=== PATIENT | female | born 1970 | race Caucasian/White ===

== ENCOUNTER 2016-10-11 04:22 | Emergency (ER) | payer BC ==
[~2016-10-11] VITALS: Ht 172.7 cm; Wt 69.8 kg
[~2016-10-11 04:22] MED LIST: AZIT250T PO
[2016-10-11 04:25] VITALS: TEMP 36.5; Ht 172.7 cm; Wt 69.8 kg
[2016-10-11] MEDS ORDERED: ONDANSETRON INJ 2 MG/ML 2 ML VIAL IV STA (04:33)
[2016-10-11] MEDS ORDERED: MoRPHine SULFATE 4 MG/ML 1 ML CARP\\VIAL IV STA ×2 (04:33→06:16)
[2016-10-11] MEDS ORDERED: SODIUM CHLORIDE 0.9% 1000ML 1,000 ML IV STA ×2 (04:33)
[2016-10-11 04:54] LABS: URINE APPEARANCE CLEAR (CLEAR); URINE BILIRUBIN NEG (NEG); URINE COLOR YELLOW; URINE NITRITE NEG (NEG); URINE PH 5.5 (4.5-7.5); URINE SPECIFIC GRAVITY 1.015 (1.000-1.030); UROBILINOGEN NEG (NEG); ZZUR CULT IF INDIC CLEAN CATCH NO
[2016-10-11 04:55] LABS: BASO % 0.2 %; BASO ABS # 0.02 K/uL (0-0.2); COMPLETE YES; EOS % 1.1 %; HEMATOCRIT 41.8 % (37-47); IG% 0.2 %; LYMPH % 27.8 %; LYMPH ABS # 2.61 K/uL (1.2-3.4); MEAN CELL VOLUME 92.9 fL (80-100); MEAN CORPUSCULAR HEMOGLOBIN 33.1 pg (25-34); MEAN CORPUSCULAR HGB CONC 35.6 g/dl (32-36); MEAN PLATELET VOLUME 10.2 fL (7.4-10.4); MONO % 5.9 %; NEUT % 64.8 %; PLATELET COUNT 240 K/uL (130-400); WHITE BLOOD COUNT 9.39 K/uL (4.8-10.8)
[2016-10-11 04:57] LABS: MANUAL MICROSCOPIC REQUIRED? NO; REVIEW REQ? NO
[2016-10-11 05:14] LABS: BUN/CREATININE RATIO 12.8 (10-20); CREATININE 0.88 mg/dl (0.60-1.20); POTASSIUM 4.2 mmol/L (3.5-5.1)
[2016-10-11] MEDS ORDERED: OPTIRAY 320 IV PRN (06:15)
--- NOTE | 2016-10-11 06:59 | EMERGENCY ROOM VISIT NOTE ---
ED Visit Note First contact with patient: 06:56 Received patient in signout from Ms. Saenz; history and physical verified by me. I tried to examine this patient twice however she has been on the phone every time I have been in the room. On physical exam the patient is slightly tender the right lower quadrant. She is drinking her prep for CAT scan. She was given an additional dose of morphine here in the emergency department. I reviewed laboratory work with the patient and we decided to proceed with the CAT scan. Ultrasound results are as follows: (RENAL)RETROPERITON COMP CLINICAL HISTORY: 45 years-old Female presenting with right flank/rlq pain, ? stone, history of partial hysterectomy. TECHNIQUE: Real-time grayscale and limited color Doppler ultrasound imaging of the kidneys and bladder was performed. COMPARISON: CT from 2007. FINDINGS: Right kidney: Normal echogenicity. Right kidney measures 10.5 cm. No hydronephrosis. No convincing evidence of calculus or mass. Normal perfusion. Left kidney: Focal cortical defect at the upper pole. Left kidney measures 10.1 cm. No hydronephrosis. No convincing evidence of calculus or mass. Normal perfusion. Bladder: Decompressed. Other: None. IMPRESSION: 1. No obstruction. No sonographic evidence of renal calculus. 2. Scarring at the left upper pole may be secondary to prior infection, trauma, or infarct. Electronically signed by: Blaine Galeano M.D. 10/11/2016 7:05 AM Dictated Date/Time: 10/11/2016 7:02 AM ULTRASOUND OF THE PELVIS CLINICAL HISTORY: Right pelvic pain. COMPARISON STUDY: Pelvic CT dated 07/25/2007. TECHNIQUE: Real-time, grayscale, and color flow sonography of the pelvis is performed both transabdominally and endovaginally. Images are reviewed in the transverse and longitudinal planes. FINDINGS: Uterus: The uterus is not identified and reported surgically absent Ovaries: The right ovary is normal in morphology, measuring 4.4 x 1.7 x 1.9 cm. There are small right ovarian follicles. The left ovary was not visualized normal Doppler waveforms are shown within the right ovary. Pelvis: There is free fluid in the cul-de-sac and left adnexa. No concerning adnexal lesion is seen. IMPRESSION: 1. No acute sonographic abnormality is identified in the pelvis. 2. The uterus is not identified and reported surgically absent. The left ovary was also not seen. 3. Unremarkable sonographic assessment of the right ovary. 4. Nonspecific free fluid is identified in the cul-de-sac and may be within physiologic limits. ABDOMEN AND PELVIS CT WITH IV AND ORAL CONTRAST CT DOSE: 285.70 mGy.cm HISTORY: Right lower quadrant abdominal pain. TECHNIQUE: Multiaxial CT images of the abdomen and pelvis were performed following the use of intravenous and oral contrast. A dose lowering technique was utilized adhering to the principles of ALARA. COMPARISON STUDY: Pelvic ultrasound 10/11/2016. Abdomen and pelvis CT 07/25/2007. FINDINGS: The lung bases are clear. No pneumoperitoneum. No pneumatosis. No fractures within the visualized osseous structures. Bilateral breast augmentation. Mild periportal edema. No hepatic masses. The gallbladder, pancreas, spleen, and adrenal glands are unremarkable. Focal scarring within the upper pole of the left kidney, unchanged. No hydronephrosis. The bladder is unremarkable. Hysterectomy. The visualized ovaries appear unremarkable. No retroperitoneal lymphadenopathy. Trace pelvic free fluid. No bowel wall thickening or obstruction. Visualized appendix is unremarkable. The appendix measures up to 5 mm in diameter. IMPRESSION: 1. Normal appendix. 2. No bowel wall thickening or obstruction. 3. Trace pelvic free fluid. This may be physiologic or due to overhydration. There is also mild periportal edema which could be due to overhydration. Recommend correlation with LFTs to exclude underlying hepatic process. Electronically signed by: Edson El M.D. 10/11/2016 9:57 AM Dictated Date/Time: 10/11/2016 9:[address] scan was reviewed with the patient. I do feel the patient as well as to be discharged home at this point. Serial abdominal examinations were performed on the patient while the patient was in my care and at no time did she exhibit a surgical abdomen. She will be discharged on ibuprofen and I recommended Percocet for breakthrough pain. Patient was in agreement with the treatment plan. Current/Historical Medications Scheduled PRN Oxycodone/Acetaminophen 5MG/325MG (Percocet 5MG/325MG), 1-2 TAB PO Q4H PRN for Pain Allergies Coded Allergies: Cefaclor (Unverified Allergy, Mild, HIVES, 01/28/16) Ceftriaxone (Unverified Allergy, Mild, HIVES, 01/28/16) Cephalosporins (Unverified Allergy, Mild, 01/28/16) Sulfa Drugs (Unverified Allergy, Mild, ANAPHYLAXIS, 01/28/16) Vital Signs Date Time Temp Pulse Resp B/P (MAP) Pulse Ox O2 Delivery O2 Flow Rate FiO2 10/11/16 10:08 73 16 125/83 98 Room Air 10/11/16 08:38 74 16 121/67 99 Room Air 10/11/16 07:05 77 18 116/77 98 Room Air 10/11/16 05:54 69 18 144/94 99 Room Air 10/11/16 04:25 36.5 93 18 141/98 96 Room Air Laboratory Results 10/11/16 04:41 Red Blood Count 4.50, Mean Corpuscular Volume 92.9, Mean Corpuscular Hemoglobin 33.1, Mean Corpuscular Hemoglobin Concent 35.6, Mean Platelet Volume 10.2, Neutrophils (%) (Auto) 64.8, Lymphocytes (%) (Auto) 27.8, Monocytes (%) (Auto) 5.9, Eosinophils (%) (Auto) 1.1, Basophils (%) (Auto) 0.2, Neutrophils # (Auto) 6.09, Lymphocytes # (Auto) 2.61, Monocytes # (Auto) 0.55, Eosinophils # (Auto) 0.10, Basophils # (Auto) 0.02 10/11/16 04:41 Test 10/11/16 04:35 10/11/16 04:41 Urine Color YELLOW Urine Appearance CLEAR (CLEAR) Urine pH 5.5 (4.5-7.5) Urine Specific [place] 1.015 (1.000-1.030) Urine Protein NEG (NEG) Urine Glucose (UA) NEG (NEG) Urine Ketones TRACE (NEG) Urine Occult Blood NEG (NEG) Urine Nitrite NEG (NEG) Urine Bilirubin NEG (NEG) Urine Urobilinogen NEG (NEG) Urine Leukocyte Esterase NEG (NEG) Urine Test NEG (NEG) White Blood Count 9.39 K/uL (4.8-10.8) Red Blood Count 4.50 M/uL (4.2-5.4) Hemoglobin 14.9 g/dL (12.0-16.0) Hematocrit 41.8 % (37-47) Mean Corpuscular Volume 92.9 fL (80-100) Mean Corpuscular Hemoglobin 33.1 pg (25-34) Mean Corpuscular Hemoglobin Concent 35.6 g/dl (32-36) Platelet Count 240 K/uL (130-400) Mean Platelet Volume 10.2 fL (7.4-10.4) Neutrophils (%) (Auto) 64.8 % Lymphocytes (%) (Auto) 27.8 % Monocytes (%) (Auto) 5.9 % Eosinophils (%) (Auto) 1.1 % Basophils (%) (Auto) 0.2 % Neutrophils # (Auto) 6.09 K/uL (1.4-6.5) Lymphocytes # (Auto) 2.61 K/uL (1.2-3.4) Monocytes # (Auto) 0.55 K/uL (0.11-0.59) Eosinophils # (Auto) 0.10 K/uL (0-0.5) Basophils # (Auto) 0.02 K/uL (0-0.2) RDW Standard Deviation 45.8 fL (36.4-46.3) RDW Coefficient of Variation 13.5 % (11.5-14.5) Immature Granulocyte % (Auto) 0.2 % Immature Granulocyte # (Auto) 0.02 K/uL (0.00-0.02) Anion Gap 6.0 mmol/L (3-11) Est Creatinine Clear Calc Drug Dose 83.1 ml/min Estimated GFR () 93.3 Estimated GFR (Non- 80.5 BUN/Creatinine Ratio 12.8 (10-20) Calcium Level 9.0 mg/dl (8.5-10.1) Total Bilirubin 0.6 mg/dl (0.2-1) Direct Bilirubin 0.1 mg/dl (0-0.2) Aspartate Amino Transf (AST/SGOT) 12 U/L (15-37) Alanine Aminotransferase (ALT/SGPT) 20 U/L (12-78) Alkaline Phosphatase 63 U/L (45-117) Total Protein 6.9 gm/dl (6.4-8.2) Albumin 3.8 gm/dl (3.4-5.0) Medications Administered Medications (Trade) Dose Ordered Sig/Alonzo Route Start Time Stop Time Status Last Admin Dose Admin Morphine Sulfate (MoRPHine SULFATE INJ) 4 mg NOW STAT IV 10/11/16 04:33 10/11/16 04:35 DC 10/11/16 04:40 4 MG Ondansetron HCl (Zofran Inj) 4 mg NOW STAT IV 10/11/16 04:33 10/11/16 04:35 DC 10/11/16 04:40 4 MG Sodium Chloride 1,000 ml @ 999 mls/hr Q1H1M STAT IV 10/11/16 04:33 10/11/16 05:33 DC 10/11/16 04:40 999 MLS/HR Sodium Chloride 1,000 ml @ 125 mls/hr Q8H STAT IV 10/11/16 04:33 10/11/16 12:32 10/11/16 04:33 125 MLS/HR Morphine Sulfate (MoRPHine SULFATE INJ) 4 mg NOW STAT IV 10/11/16 06:16 10/11/16 06:17 DC 10/11/16 06:26 4 MG Morphine Sulfate (MoRPHine SULFATE INJ) 4 mg Q1H PRN IV 10/11/16 07:15 10/25/16 07:14 10/11/16 10:06 4 MG Departure Information Prescriptions Oxycodone/Acetaminophen 5MG/325MG (PERCOCET 5MG/325MG) Tab 1-2 TAB PO Q4H Y for Pain, #14 TAB Prov: Christopher Granda MD 10/11/16 Referrals No Doctor, Assigned (PCP) Patient Instructions My [facility]
--- NOTE | 2016-10-11 07:06 | DIAGNOSTIC IMAGING REPORT ---
(RENAL)RETROPERITON COMP CLINICAL HISTORY: 45 years-old Female presenting with right flank/rlq pain, ? stone, history of partial hysterectomy. TECHNIQUE: Real-time grayscale and limited color Doppler ultrasound imaging of the kidneys and bladder was performed. COMPARISON: CT from 2007. FINDINGS: Right kidney: Normal echogenicity. Right kidney measures 10.5 cm. No hydronephrosis. No convincing evidence of calculus or mass. Normal perfusion. Left kidney: Focal cortical defect at the upper pole. Left kidney measures 10.1 cm. No hydronephrosis. No convincing evidence of calculus or mass. Normal perfusion. Bladder: Decompressed. Other: None. IMPRESSION: 1. No obstruction. No sonographic evidence of renal calculus. 2. Scarring at the left upper pole may be secondary to prior infection, trauma, or infarct. Electronically signed by: Blaine Galeano M.D. 10/11/2016 7:05 AM Dictated Date/Time: 10/11/2016 7:02 AM
[2016-10-11] MEDS ORDERED: MoRPHine SULFATE 4 MG/ML 1 ML CARP\\VIAL IV PRN (07:15)
--- NOTE | 2016-10-11 07:16 | DIAGNOSTIC IMAGING REPORT ---
ULTRASOUND OF THE PELVIS CLINICAL HISTORY: Right pelvic pain. COMPARISON STUDY: Pelvic CT dated 07/25/2007. TECHNIQUE: Real-time, grayscale, and color flow sonography of the pelvis is performed both transabdominally and endovaginally. Images are reviewed in the transverse and longitudinal planes. FINDINGS: Uterus: The uterus is not identified and reported surgically absent Ovaries: The right ovary is normal in morphology, measuring 4.4 x 1.7 x 1.9 cm. There are small right ovarian follicles. The left ovary was not visualized normal Doppler waveforms are shown within the right ovary. Pelvis: There is free fluid in the cul-de-sac and left adnexa. No concerning adnexal lesion is seen. IMPRESSION: 1. No acute sonographic abnormality is identified in the pelvis. 2. The uterus is not identified and reported surgically absent. The left ovary was also not seen. 3. Unremarkable sonographic assessment of the right ovary. 4. Nonspecific free fluid is identified in the cul-de-sac and may be within physiologic limits. Electronically signed by: Armaan Bell M.D. 10/11/2016 7:15 AM Dictated Date/Time: 10/11/2016 7:12 AM
--- NOTE | 2016-10-11 09:37 | DIAGNOSTIC IMAGING REPORT ---
ABDOMEN AND PELVIS CT WITH IV AND ORAL CONTRAST CT DOSE: 285.70 mGy.cm HISTORY: Right lower quadrant abdominal pain. TECHNIQUE: Multiaxial CT images of the abdomen and pelvis were performed following the use of intravenous and oral contrast. A dose lowering technique was utilized adhering to the principles of ALARA. COMPARISON STUDY: Pelvic ultrasound 10/11/2016. Abdomen and pelvis CT 07/25/2007. FINDINGS: The lung bases are clear. No pneumoperitoneum. No pneumatosis. No fractures within the visualized osseous structures. Bilateral breast augmentation. Mild periportal edema. No hepatic masses. The gallbladder, pancreas, spleen, and adrenal glands are unremarkable. Focal scarring within the upper pole of the left kidney, unchanged. No hydronephrosis. The bladder is unremarkable. Hysterectomy. The visualized ovaries appear unremarkable. No retroperitoneal lymphadenopathy. Trace pelvic free fluid. No bowel wall thickening or obstruction. Visualized appendix is unremarkable. The appendix measures up to 5 mm in diameter. IMPRESSION: 1. Normal appendix. 2. No bowel wall thickening or obstruction. 3. Trace pelvic free fluid. This may be physiologic or due to overhydration. There is also mild periportal edema which could be due to overhydration. Recommend correlation with LFTs to exclude underlying hepatic process. Electronically signed by: Edson El M.D. 10/11/2016 9:57 AM Dictated Date/Time: 10/11/2016 9:14 AM
[2016-10-11 10:08] VITALS: BP 125/83; PULSE 73; O2SAT 98
[2016-10-11] MEDS ORDERED: OXYC-57 PO (10:46)
--- NOTE | 2016-10-12 04:45 | EMERGENCY ROOM VISIT NOTE ---
History First contact with patient: 04:29 Chief Complaint: ABDOMINAL PAIN Stated Complaint: EXTREME LOWER RIGHT ABD PAIN History of Present Illness The patient is a 45 year old female who presents to the Emergency Room with complaints of severe sudden onset of right lower quadrant flank pain for the past few hours that woke her up out of sleep. Patient states last night before bed she had some discomfort in her flank right lower quadrant area but when she woke up an hour ago, she was doubled over in pain. Patient still has her appendix. No history kidney stones. Pain currently 8 out of 10. Nothing makes it better or worse. Patient denies chest pain, dyspnea, fever, chills, vomiting, diarrhea, urinary symptoms, vaginal itching or discharge. Patient's had a tubal ligation. Patient had ovarian cysts before that have ruptured but this feels different. Review of Systems See HPI for pertinent positives & negatives. A total of 10 systems reviewed and were otherwise negative. Past Medical/Surgical History Tubal ligation, ovarian cyst Social History Smoking Status: Current Every Day Smoker Alcohol Use: occasionally Drug Use: none Marital Status: Housing Status: lives with family Occupation Status: employed Current/Historical Medications Scheduled PRN Oxycodone/Acetaminophen 5MG/325MG (Percocet 5MG/325MG), 1-2 TAB PO Q4H PRN for Pain Allergies Coded Allergies: Cefaclor (Unverified Allergy, Mild, HIVES, 01/28/16) Ceftriaxone (Unverified Allergy, Mild, HIVES, 01/28/16) Cephalosporins (Unverified Allergy, Mild, 01/28/16) Sulfa Drugs (Unverified Allergy, Mild, ANAPHYLAXIS, 01/28/16) Physical Exam Vital Signs Date Time Temp Pulse Resp B/P (MAP) Pulse Ox O2 Delivery O2 Flow Rate FiO2 10/11/16 10:08 73 16 125/83 98 Room Air 10/11/16 08:38 74 16 121/67 99 Room Air 10/11/16 07:05 77 18 116/77 98 Room Air 10/11/16 05:54 69 18 144/94 99 Room Air 10/11/16 04:25 36.5 93 18 141/98 96 Room Air Physical Exam VITALS: Vitals are noted on the nurse's note and reviewed by myself. Vital signs stable. GENERAL: White female writhing in pain, in no acute distress, nondiaphoretic, well-developed well-nourished. SKIN: The skin was without rashes, erythema, edema, or bruising. There is no tenting of the skin. Capillary reflex less than 2 seconds. HEAD: Normocephalic atraumatic. EARS: External auditory canals clear, tympanic membranes pearly thomason without erythema or effusion bilaterally. EYES: Pupils equal round and reactive to light and accommodation. Conjunctivae without injection, sclerae without icterus. Extraocular movements intact. NOSE: Patent, turbinates without inflammation or discharge. MOUTH: Mucous membranes moist. Pharynx without erythema or exudate. Uvula midline. Airway patent. Tongue does not deviate. NECK: Supple without nuchal rigidity. No lymphadenopathy. No thyromegaly. Cervical spine is nontender. No JVD. HEART: Regular rate and rhythm without murmurs gallops or rubs. LUNGS: Clear to auscultation bilaterally without wheezes, rales or rhonchi. No dullness to percussion. No retractions or accessory muscle use. ABDOMEN: Positive bowel sounds x 4. Normal tympanic percussion. Soft, minimally tender right lower quadrant superpubic area, no CVA tenderness, without masses or organomegaly. Rodriguez sign negative. No guarding or rebound tenderness. MUSCULOSKELETAL: No muscle atrophy, erythema, or edema noted. NEURO: Patient was alert and oriented to person place and time. Normal sensation to light and sharp touch. No focal neurological deficits. Medical Decision & Procedures Laboratory Results 10/11/16 04:41 Red Blood Count 4.50, Mean Corpuscular Volume 92.9, Mean Corpuscular Hemoglobin 33.1, Mean Corpuscular Hemoglobin Concent 35.6, Mean Platelet Volume 10.2, Neutrophils (%) (Auto) 64.8, Lymphocytes (%) (Auto) 27.8, Monocytes (%) (Auto) 5.9, Eosinophils (%) (Auto) 1.1, Basophils (%) (Auto) 0.2, Neutrophils # (Auto) 6.09, Lymphocytes # (Auto) 2.61, Monocytes # (Auto) 0.55, Eosinophils # (Auto) 0.10, Basophils # (Auto) 0.02 10/11/16 04:41 Test 10/11/16 04:35 10/11/16 04:41 Urine Color YELLOW Urine Appearance CLEAR (CLEAR) Urine pH 5.5 (4.5-7.5) Urine Specific [place] 1.015 (1.000-1.030) Urine Protein NEG (NEG) Urine Glucose (UA) NEG (NEG) Urine Ketones TRACE (NEG) Urine Occult Blood NEG (NEG) Urine Nitrite NEG (NEG) Urine Bilirubin NEG (NEG) Urine Urobilinogen NEG (NEG) Urine Leukocyte Esterase NEG (NEG) Urine Test NEG (NEG) White Blood Count 9.39 K/uL (4.8-10.8) Red Blood Count 4.50 M/uL (4.2-5.4) Hemoglobin 14.9 g/dL (12.0-16.0) Hematocrit 41.8 % (37-47) Mean Corpuscular Volume 92.9 fL (80-100) Mean Corpuscular Hemoglobin 33.1 pg (25-34) Mean Corpuscular Hemoglobin Concent 35.6 g/dl (32-36) Platelet Count 240 K/uL (130-400) Mean Platelet Volume 10.2 fL (7.4-10.4) Neutrophils (%) (Auto) 64.8 % Lymphocytes (%) (Auto) 27.8 % Monocytes (%) (Auto) 5.9 % Eosinophils (%) (Auto) 1.1 % Basophils (%) (Auto) 0.2 % Neutrophils # (Auto) 6.09 K/uL (1.4-6.5) Lymphocytes # (Auto) 2.61 K/uL (1.2-3.4) Monocytes # (Auto) 0.55 K/uL (0.11-0.59) Eosinophils # (Auto) 0.10 K/uL (0-0.5) Basophils # (Auto) 0.02 K/uL (0-0.2) RDW Standard Deviation 45.8 fL (36.4-46.3) RDW Coefficient of Variation 13.5 % (11.5-14.5) Immature Granulocyte % (Auto) 0.2 % Immature Granulocyte # (Auto) 0.02 K/uL (0.00-0.02) Anion Gap 6.0 mmol/L (3-11) Est Creatinine Clear Calc Drug Dose 83.1 ml/min Estimated GFR () 93.3 Estimated GFR (Non- 80.5 BUN/Creatinine Ratio 12.8 (10-20) Calcium Level 9.0 mg/dl (8.5-10.1) Total Bilirubin 0.6 mg/dl (0.2-1) Direct Bilirubin 0.1 mg/dl (0-0.2) Aspartate Amino Transf (AST/SGOT) 12 U/L (15-37) Alanine Aminotransferase (ALT/SGPT) 20 U/L (12-78) Alkaline Phosphatase 63 U/L (45-117) Total Protein 6.9 gm/dl (6.4-8.2) Albumin 3.8 gm/dl (3.4-5.0) Medications Administered Medications (Trade) Dose Ordered Sig/Alonzo Route Start Time Stop Time Status Last Admin Dose Admin Morphine Sulfate (MoRPHine SULFATE INJ) 4 mg NOW STAT IV 10/11/16 04:33 10/11/16 04:35 DC 10/11/16 04:40 4 MG Ondansetron HCl (Zofran Inj) 4 mg NOW STAT IV 10/11/16 04:33 10/11/16 04:35 DC 10/11/16 04:40 4 MG Sodium Chloride 1,000 ml @ 999 mls/hr Q1H1M STAT IV 10/11/16 04:33 10/11/16 05:33 DC 10/11/16 04:40 999 MLS/HR Sodium Chloride 1,000 ml @ 125 mls/hr Q8H STAT IV 10/11/16 04:33 10/11/16 11:49 DC 10/11/16 04:33 125 MLS/HR Morphine Sulfate (MoRPHine SULFATE INJ) 4 mg NOW STAT IV 10/11/16 06:16 10/11/16 06:17 DC 10/11/16 06:26 4 MG Morphine Sulfate (MoRPHine SULFATE INJ) 4 mg Q1H PRN IV 10/11/16 07:15 10/11/16 11:49 DC 10/11/16 10:06 4 MG ED Course Prior records/ancillary studies reviewed. Triage Nursing notes reviewed. The patient's history was concerning for right flank lower quadrant pain. Differential diagnosis: Etiologies such as renal colic, appendicitis, diverticulitis, mesenteric ischemia, aortic pathology, infections, inflammatory bowel disease, PUD, biliary pathology, UTI, as well as others were entertained. Physical examination findings: As above. ER treatment provided: Morphine, Zofran, IV fluids On reassessment the patient felt better. Diagnostic interpretation by me: The labs revealed no worrisome leukocytosis or electrolyte abnormality.. Urinalysis revealed no hematuria. There was no sign of UTI. Imaging studies: CT of the abdomen and pelvis pending Ultrasounds were reviewed and read by radiology Exam and history seem consistent with right lower quadrant pain and right flank pain for the past few hours. Patient's pain was persisting. Further imaging was ordered. CT was pending at time of signout. Patient had no leukocytosis. Negative urine. Negative hCG. Case is signed out to Dr. Granda, pending CT and reevaluation in stable condition. Case reviewed with my attending. Medical Decision As above Impression Primary Impression: Right lower quadrant abdominal pain Departure Information Prescriptions Oxycodone/Acetaminophen 5MG/325MG (PERCOCET 5MG/325MG) Tab 1-2 TAB PO Q4H Y for Pain, #14 TAB Prov: Christopher Granda MD 10/11/16 Referrals No Doctor, Assigned (PCP) Patient Instructions My [facility]
== END 2016-10-11 11:06 | disposition home or self-care (01) ==
LOC: C.EDB 04:23
DX: R10.31 Right lower quadrant pain (principal); F17.210 Nicotine dependence, cigarettes, uncomplicated

== ENCOUNTER 2024-10-01 10:13 | Observation (INO) ==
[2024-10-01 10:44] LABS: Hematocrit (blood only) 40.9 % (37.0-47.0); Hemoglobin 14.0 g/dl (12.0-16.0); Immature Granulocytes # (auto) 0.02 K/uL (0.01-0.20); Immature Granulocytes % (auto) 0.2 %; Mean Corpuscular Hemoglobin 30.5 pg (25.0-34.0); Mean Corpuscular Volume 89.1 fL (80.0-100.0); Platelet Count 168 K/uL (130-400); RDW Standard Deviation 44.3 fL (36.4-46.3); Red Blood Count 4.59 M/uL (4.20-5.40); White Blood Count 9.50 K/ul (4.8-10.8)
[2024-10-01] MEDS: MoRPHine SULFATE 4 MG/ML 1 ML CARP\\VIAL IV STA ×2 (10:49→13:15)
[2024-10-01] MEDS: ONDANSETRON INJ 2 MG/ML 2 ML VIAL IV STA (10:49)
[2024-10-01 10:52] LABS: Anion Gap 5.0 (3-11); Bilirubin,Total 0.6 mg/dl (0.2-1.0); Calcium 9.0 mg/dl (8.6-10.3); Carbon Dioxide 24.0 mmol/L (21-32); Chloride 110.0 mmol/L (98-107); Magnesium 1.9 mg/dl (1.7-2.4); Potassium 4.5 mmol/L (3.5-5.1); Sodium 139.0 mmol/L (136-145)
--- NOTE | 2024-10-01 10:55 | Emergency Department Note ---
Impression & Plan Acute acalculous cholecystitis, Right upper quadrant abdominal pain, Tobacco use ED Provider Note NAME: MAGGI DE JESUS AGE: 53 SEX: F : 1970 ARRIVES VIA: Ambulance INFORMANT: Patient, EMS ED PROVIDER(S): Kevin Robertson DO CHIEF COMPLAINT: Chest pain HPI: The patient is a 53-year-old female who presented to the emergency department by ambulance for an evaluation of chest pain and difficulty breathing. The patient started having symptoms over the last several days. The pain is intermittent and appears to be worse with exertion. The patient denies having any vomiting but she has had some nausea as well as shortness of breath. The patient is not been seen by her family doctor but she is scheduled for a cardiac MRI this week. The patient has a history of PVCs. She presented to the emergency department by ambulance for further evaluation. ROS: See above HPI for pertinent positives & negatives. A total of 10 systems reviewed and were otherwise negative. PAST MEDICAL HISTORY: See Below PAST SURGICAL HISTORY: See Below FAMILY HISTORY: See Below SOCIAL HISTORY: See Below HOME MEDICATIONS: See Below ALLERGIES: See Below VITALS: See Below PHYSICAL EXAMINATION: GENERAL: Patient is awake alert in no acute distress patient is resting comfortably and showing no signs of anxiety EYES: The conjunctivae are clear. The pupils are round and reactive. EARS, NOSE, MOUTH AND THROAT: The nose is without any evidence of any deformity. Mucous membranes are moist. Tongue is midline. NECK: The neck is nontender and supple. RESPIRATORY: Normal respiratory effort is noted there is no evidence of wheezing rhonchi or rales CARDIOVASCULAR: Irregular heart sounds were noted to auscultation. There is no definite murmur. Heart sounds are bradycardic in nature. GASTROINTESTINAL: The abdomen is soft and nondistended. There is epigastric tenderness to palpation as well as right upper quadrant tenderness. There is no guarding rigidity. MUSCULOSKELETAL/EXTREMITIES: There is no evidence of gross deformity full range of motion is noted in the hips and shoulders. SKIN: There is no obvious evidence of any rash. There are no petechiae, pallor or cyanosis noted. NEUROLOGIC: Patient is awake alert and oriented x3 MEDICAL DECISION MAKING: The patient is a 53-year-old female who presented to the emergency department for an evaluation of upper abdominal pain. The patient does have a history of tobacco use. She has had a cardiac catheterization in 2022. I reviewed this cardiac catheterization. There was some signs of mild coronary artery disease but the patient's cardiac biomarker was negative despite having ongoing symptoms for 24 hours. I discussed the patient's laboratory and radiographic studies with her. She was treated with IV antibiotics as well as pain medication. Given her findings I discussed her condition with the on-call [facility] hospitalist as well as the on-call general surgeon. They have agreed to evaluate the patient in the emergency department for further management and disposition. Triage Nursing notes reviewed. Prior medical records reviewed Vital Signs: reviewed and remarkable for bradycardia. Differential diagnosis: Cardiac ischemia, aortic dissection, pulmonary embolism, pneumothorax, pneumonia, pericarditis, myocarditis, esophageal rupture, GERD, cholecystitis, pancreatitis, musculoskeletal, as well as other pathologies. ER treatment provided: See below Diagnostics interpreted by me: ECG: EKG was obtained in the emergency department. My interpretation is sinus bradycardia at 53 bpm. Frequent PVCs were noted. Nonspecific ST abnormalities were noted. This was compared to a tracing from September 09, 2023. The rate itself has slowed but the PVCs are not new. Otherwise no specific changes were noted. Cardiac Monitoring: An order was placed for continuous cardiac monitoring. The monitor shows a rate of 45 bpm with sinus bradycardia. Laboratory studies: As stated above and show below. Imaging studies: See below. Radiographic imaging was reviewed by myself Consultation(s): I discussed this case with Dr Mcdaniels who was conveyor belt operator for the [facility] hospitalist I discussed this case with Kymberly who was conveyor belt operator for General Surgery Past Med/Surg History Problem List Tobacco use (Acute) Right upper quadrant abdominal pain (Acute) Acute acalculous cholecystitis (Acute) Abnormal gallbladder ultrasound Frequent PVCs Colon cancer screening Encounter for pre-operative examination Current smoker 1,5 PPD Wheezing Cough URI (upper respiratory infection) Abnormal stress test Recurrent isolated sleep paralysis Tachycardia Palpitations Therapeutic opioid-induced constipation (OIC) Snoring Fatigue Sleep paralysis Constipation NSAID long-term use Chronic rhinitis Diarrhea Lumbar radiculopathy Breast implant status Dyspnea on exertion Epidermal cyst Intestinal metaplasia of gastric cardia GERD (gastroesophageal reflux disease) Leukoplakia of larynx Right lower quadrant abdominal pain (Acute) Migraine (Acute) Headache (Acute) Chest pain (Acute) Chronic pain follows with [facility] Lymphocytic colitis stable Chronic low back pain Lumbar facet joint syndrome Lumbar disc herniation History of nasal septoplasty Medical History Back injury recent back injury, treated at [facility] Emergency Room 05/01/23 - treated with pain medication and steroids at the time. doing better at this time. Anxiety and depression Dyslipidemia HTN (hypertension) Hx of steroid therapy lumbar steroid injection, 10/2022 [facility] History of stomach ulcers Gastritis hx GERD (gastroesophageal reflux disease) Leg edema bilateral Temporomandibular joint disorder clicking when eats Post traumatic stress disorder Hx of migraines Lumbar pain Degenerative disc disease Surgical History H/O radiofrequency ablation (RFA) of nerve of lumbar spine 04/04/23 & 04/06/[address] Cervantes Hx of cardiac catheterization 09/2022- having chest pain and PVC'S , no stents- follows w/ [facility] H/O breast augmentation History of esophagogastroduodenoscopy (EGD) History of colonoscopy History of section X 1 Vocal cord polyps removed multiple times History of tooth extraction Nausea and vomiting after administration of anesthetic agent History of hysterectomy partial History of bilateral tubal ligation Hx of shoulder surgery left shoulder x 2 History of tonsillectomy Family History Father Skin cancer Grandmother (Paternal) Stomach cancer Other No family history of adverse response to anesthesia Denies family history of Ovarian cancer Prostate cancer Breast cancer Colorectal cancer Social History Smoking Status: Current every day smoker Tobacco Type: Cigarettes Cigarettes Per Day: 40 CIG DAILY- advised; Second Hand Exposure: Yes (in the past); Do You Dip or Chew Tobacco: No; Hx Alcohol Use: Yes Alcohol type: beer, wine and hard liquor Hx Substance Use: No Preferred Language: Argentine Communication Ability: Effective Line Server Required: No Beliefs That Will Affect Care: None marital status: Current Living Situation: Spouse and Family Feels Safe at Home: Yes Diet: regular caffeine: Yes Physical Activity Frequency: Daily Seatbelt Use: always Sunscreen Use: Yes Assistive Devices: Glasses Allergies Allergies Allergy/AdvReac Type Severity Reaction Status Date / Time Sulfa (Sulfonamide Allergy Severe ANAPHYLAXIS Verified 08/12/24 14:36 Antibiotics) cefaclor Allergy Intermediate HIVES Verified 08/12/24 14:36 ceftriaxone Allergy Intermediate HIVES Verified 08/12/24 14:36 Cephalosporins Allergy Intermediate HIVES Verified 08/12/24 14:36 Home Meds Home Medications Medication Instructions Recorded Confirmed spironolactone 25 mg tablet 0 mg PO QAM 10/12/22 10/01/24 amlodipine 10 mg tablet 10 mg PO QAM 04/06/23 10/01/24 naloxegol 25 mg tablet (Movantik) 25 mg PO QAM PRN opioid induced 04/14/23 10/01/24 constipation gabapentin 100 mg capsule 100 mg PO HS 07/04/23 10/01/24 cholecalciferol (vitamin D3) 25 2,000 mcg PO QAM 12/19/23 10/01/24 mcg (1,000 unit) tablet (Vitamin D3) escitalopram oxalate 20 mg tablet 20 mg PO DAILY 12/19/23 10/01/24 (Lexapro) rosuvastatin 20 mg tablet 10 mg PO DAILY 12/19/23 10/01/24 aspirin 81 mg tablet,delayed 81 mg PO QAM 10/01/24 10/01/24 release Previous Rx's Medication Instructions Recorded metoprolol tartrate 25 mg tablet 25 mg PO BID #60 tabs 11/10/22 Results & Data (ED) Vital Signs Vital Signs - 24 hr 10/01/24 10:05 10/01/24 10:05 10/01/24 10:05 Temperature 36.6 C 36.6 C Temperature Source Oral Oral Pulse Rate 60 Pulse Rate [Apical] 60 Pulse Rhythm Regular Pulse Rhythm [Apical] Regular Pulse Strength Normal Pulse Strength [Apical] Normal Respiratory Rate 19 19 Respiratory Effort / Characteristics Non-Labored Spontaneous Non-Labored Spontaneous Respiratory Depth Normal Normal Respiratory Pattern Regular Regular Blood Pressure 176/86 H Blood Pressure [Right Arm] 176/86 H Blood Pressure Mean 116 Blood Pressure Mean [Right Arm] 116 Blood Pressure Position Sitting Blood Pressure Position [Right Arm] Sitting Pulse Oximetry 97 97 97 Oxygen Delivery Method Room Air Room Air Room Air Sepsis Recent Fever Within 48 Hours No Sepsis New/Unexplained Change in Mental Status No Sepsis Action Taken by Nursing No Action Required 10/01/24 11:58 10/01/24 13:28 Temperature Temperature Source Pulse Rate Pulse Rate [Apical] 47 L 45 L Pulse Rhythm Pulse Rhythm [Apical] Regular Pulse Strength Pulse Strength [Apical] Respiratory Rate 20 18 Respiratory Effort / Characteristics Non-Labored Non-Labored Spontaneous Respiratory Depth Normal Normal Respiratory Pattern Regular Blood Pressure Blood Pressure [Right Arm] 125/82 155/81 H Blood Pressure Mean Blood Pressure Mean [Right Arm] 96 105 Blood Pressure Position Blood Pressure Position [Right Arm] Lying Pulse Oximetry 100 100 Oxygen Delivery Method Room Air Room Air Sepsis Recent Fever Within 48 Hours Sepsis New/Unexplained Change in Mental Status Sepsis Action Taken by Custodial Medications Current Medication List: was personally reviewed by me Laboratory Data Attestation: I reviewed the patient's lab results. 10/01/24 10:19 10/01/24 10:19 Lab Results 10/01/24 Range/Units 10:19 WBC 9.50 (4.8-10.8) K/ul RBC 4.59 (4.20-5.40) M/uL Hgb 14.0 (12.0-16.0) g/dl Hct 40.9 (37.0-47.0) % MCV 89.1 (80.0-100.0) fL MCH 30.5 (25.0-34.0) pg MCHC 34.2 (32.0-36.0) g/dL RDW Std Deviation 44.3 (36.4-46.3) fL RDW Coeff of Floyd 13.4 (11.5-14.5) % Plt Count 168 (130-400) K/uL MPV 12.1 (9.4-12.4) fL Immature Gran % (Auto) 0.2 % Neut % (Auto) 65.7 % Lymph % (Auto) 27.7 % [place] % (Auto) 5.4 % Eos % (Auto) 0.7 % Baso % (Auto) 0.3 % Neut # (Auto) 6.24 (1.40-6.50) K/uL Lymph # (Auto) 2.63 (1.20-3.40) K/uL [place] # (Auto) 0.51 (0.11-0.59) K/uL Eos # (Auto) 0.07 (0.00-0.50) K/uL Baso # (Auto) 0.03 (0.00-0.20) K/uL Immature Gran # (Auto) 0.02 (0.01-0.20) K/uL PT 11.4 (9.0-12.0) Seconds INR 1.1 (0.9-1.1) APTT 28 (21-31) Seconds PTT Ratio 1.0 Sodium 139 (136-145) mmol/L Potassium 4.5 (3.5-5.1) mmol/L Chloride 110 H (98-107) mmol/L Carbon Dioxide 24 (21-32) mmol/L Anion Gap 5 (3-11) BUN 14 (6-23) mg/dl Creatinine 0.98 (0.6-1.2) mg/dl Est Cr Clr Drug Dosing 68.5 ml/min eGFR 69.88 BUN/Creatinine Ratio 14.3 (10-20) Glucose 101 H (70-99(Fasting)) mg/dl Calcium 9.0 (8.6-10.3) mg/dl Magnesium 1.9 (1.7-2.4) mg/dl Total Bilirubin 0.6 (0.2-1.0) mg/dl AST 18 (13-39) U/L ALT 25 (7-52) U/L Alkaline Phosphatase 74 (34-104) U/L Troponin I High Sens 2.5 (0-14) pg/ml Total Protein 6.5 (6.0-8.3) gm/dl Albumin 4.1 (3.4-5.0) gm/dl Globulin 2.4 L (2.5-4.0) gm/dl Albumin/Globulin Ratio 1.7 (0.9-2) TSH 1.422 (0.300-4.500) uIu/ml Administered Medications Sodium Chloride (Nss) 500 mls @ 125 mls/hr IV .Q4H JOHN Stop: 10/01/24 21:29 Last Admin: 10/01/24 13:42 Dose: 125 mls/hr Documented By: CAP Discontinued Medications Piperacillin Sod/Tazobactam Sod (Zosyn) 4.5 gm in 100 mls @ 200 mls/hr IV NOW ONE; Protocol Stop: 10/01/24 13:17 Last Infusion: 10/01/24 13:55 Dose: Infused Documented By: Admin: 10/01/24 13:17 Dose: 200 mls/hr Documented By: HUGO Pantoprazole Sodium (Protonix) 40 mg in 10 mls @ 5 mls/min IV NOW ONE Stop: 10/01/24 13:27 Last Admin: 10/01/24 13:42 Dose: 5 mls/min Documented By: CAP Morphine Sulfate (Morphine Sulfate 4 Mg/Ml 1 Ml Carp\Vial) 4 mg IV NOW STA Stop: 10/01/24 10:44 Last Admin: 10/01/24 10:49 Dose: 4 mg Documented By: MPD Morphine Sulfate (Morphine Sulfate 4 Mg/Ml 1 Ml Carp\Vial) 4 mg IV NOW STA Stop: 10/01/24 13:05 Last Admin: 10/01/24 13:15 Dose: 4 mg Documented By: HUGO Ondansetron HCl (Ondansetron Inj 2 Mg/Ml 2 Ml Vial) 4 mg IV NOW STA Stop: 10/01/24 10:44 Last Admin: 10/01/24 10:49 Dose: 4 mg Documented By: MADHU Imaging Data Attestation: I personally reviewed and interpreted this imaging study as follows: My Impression: 1 view chest x-ray was obtained in the emergency department. My interpretation is no free air or definite infiltrate, final report below. Radiologist's Impression: Chest X-Ray 10/01/24 10:25 XR chest 1V portable CLINICAL HISTORY: Dysrhythmia COMPARISON STUDY: 05/01/2023 FINDINGS: The cardiac and mediastinal contours are normal. There is no failure. There is no focal pulmonary consolidation. There are no pleural effusions. There are surgical changes involve the left shoulder. Overlying cardiac leads are evident. IMPRESSION: No active disease in the chest. ACT 112: Negative or not required by law. Electronically signed by: Marcial Alvarez M.D. 10/01/2024 10:57 AM Gallbladder Ultrasound 10/01/24 10:43 ABDOMINAL ULTRASOUND, RIGHT UPPER QUADRANT HISTORY: Acute right upper quadrant abdominal pain upper pain. COMPARISON: CT abdomen and pelvis 09/08/2023 FINDINGS: Pancreas: The pancreas demonstrates a normal echotexture. Liver: Unremarkable. Gallbladder: No cholelithiasis identified by ultrasound. The gallbladder wall is thickened measuring up to 3.6 m and appears edematous. Trace pericholecystic fluid. Positive sonographic Rodriguez sign. CBD: 5 mm Right kidney: No hydronephrosis. IMPRESSION: 1. No cholelithiasis identified by ultrasound, however there is gallbladder wall thickening with pericholecystic fluid and positive sonographic Rodriguez's sign. Findings are nonspecific and could be evaluated with nuclear medicine hepatobiliary scan. 2. No biliary ductal dilation. ACT 112: Negative or not required by law. Electronically signed by: Ubaldo Pan M.D. 10/01/2024 12:37 PM Discharge Plan Visit Data Chief Complaint: Chest Pain ED Provider: Kevin Robertson Discharge Problem: Acute acalculous cholecystitis, Right upper quadrant abdominal pain, Tobacco use Patient Disposition: Being Evaluated by Hospitalist Condition: Fair
[2024-10-01 10:58] LABS: Alanine Aminotransferase 25.0 U/L (7-52); Albumin Globulin Ratio 1.7 (0.9-2); Alkaline Phosphatase 74.0 U/L (34-104); Blood Urea Nitrogen 14.0 mg/dl (6-23); Creatinine Clr Calc Pharmacy 68.5 ml/min; Globulin 2.4 gm/dl (2.5-4.0); Glucose 101.0 mg/dl (70-99(Fasting)); Total Protein 6.5 gm/dl (6.0-8.3)
--- NOTE | 2024-10-01 10:58 | XRay Report ---
XR chest 1V portable CLINICAL HISTORY: Dysrhythmia COMPARISON STUDY: 05/01/2023 FINDINGS: The cardiac and mediastinal contours are normal. There is no failure. There is no focal pul monary consolidation. There are no pleural effusions. There are surgical changes involve the left casi ulder. Overlying cardiac leads are evident. IMPRESSION: No active disease in the chest. ACT 112: Negative or not required by law. Electronically signed by: Marcial Alvarez M.D. 10/01/2024 10:57 AM
[2024-10-01 11:20] LABS: INR 1.1 (0.9-1.1); Partial Thromboplastin Time 28 Seconds (21-31); Prothrombin Time 11.4 Seconds (9.0-12.0)
[2024-10-01 11:27] LABS: Thyroid Stimulating Hormone 1.422 uIu/ml (0.300-4.500)
--- NOTE | 2024-10-01 12:38 | Ultrasound Report ---
ABDOMINAL ULTRASOUND, RIGHT UPPER QUADRANT HISTORY: Acute right upper quadrant abdominal pain upper pain. COMPARISON: CT abdomen and pelvis 09/08/2023 FINDINGS: Pancreas: The pancreas demonstrates a normal echotexture. Liver: Unremarkable. Gallbladder: No cholelithiasis identified by ultrasound. The gallbladder wall is thickened measuring up to 3.6 m and appears edematous. Trace pericholecystic fluid. Positive sonographic Rodriguez sign. CBD: 5 mm Right kidney: No hydronephrosis. IMPRESSION: 1. No cholelithiasis identified by ultrasound, however there is gallbladder wall thickening with jorgito cholecystic fluid and positive sonographic Rodriguez's sign. Findings are nonspecific and could be evalu ated with nuclear medicine hepatobiliary scan. 2. No biliary ductal dilation. ACT 112: Negative or not required by law. Electronically signed by: Ubaldo Pan M.D. 10/01/2024 12:37 PM
[2024-10-01] MEDS: PIPERACILLIN/TAZOBACTAM 4.5 GM/100 ML BAG IV ONE (13:17)
--- NOTE | 2024-10-01 13:22 | Surgery Consultation ---
Date of Consultation October 01, 2024 Assessment & Plan (1) Abnormal gallbladder ultrasound: This is a 53yF with a PMH of chronic back pain, current cigarette usage 2-3 ppd, GERD, who presents to the [facility] ED on 10/01/24 with complaints of chest pain and shortness of breath that have worsened since the wknd. She went to urgent care today for evaluation who sent her to the ER for further workup. Thus far she underwent a CXR showing no active disease in the chest. She also underwent a RUQ US showing no cholelithiasis, however there is gallbladder wall thickening with trace pericholecystic fluid and positive sonographic Rodriguez's sign. The patient has some intermittent nausea, but no worsening symptoms with food intake. She denies fevers/chills. Her blood work shows a normal WBC 7.5, Hbg14, Tb 0.6, AST 18. ALT 25. She does have a HR in the 30-40's and she tells me she does run low and was scheduled for a cardiac MRI tomorrow. Otherwise she is on room air with stable BP and is afebrile. Abdomen is soft and non distended. She points to her mid and left chest when asked where her pain is. On palpation she does have tenderness in the epigastric region. Her US does not report any gallstones and her history does not seem necessarily consistent with gallbladder etiology, but given the findings on US of wall thickening/fluid/+ murphys we agree to obtain a HIDA scan for further evaluation. She is also ordered for an ECHO for further cardiac workup. If HIDA negative could also consider workup to rule out ulcer. We will continue to follow while awaiting further workup, she is NPO and ordered IV abx in the meantime. History of Present Illness History of Present Illness This is a 53yF with a PMH of chronic back pain, current cigarette usage 2-3 ppd, GERD, who presents to the [facility] ED on 10/01/24 with complaints of chest pain and shortness of breath. She states she has not been feeling great over the last 2 weeks in terms of more fatigue than usual. Then starting over the weekend she developed chest pain and some shortness of breath. The chest pain was at first temporary and come and go, but now it seems like it's lingering more. She went to urgent care today for evaluation who sent her to the ER for further workup. Thus far she underwent a CXR showing no active disease in the chest. She also underwent a RUQ US showing no cholelithiasis, however there is gallbladder wall thickening with trace pericholecystic fluid and positive sonographic Rodriguez's sign. The patient reports some intermittent nausea. She did report a bout of emesis maybe two wknds ago that came out of the blue. She denies any worsening pain after eating. She reports pain is mostly left sided and does note that when she lays on her left side it worsens. She denies fevers/chills or change in bowel habits. Had a colonoscopy in the past. PSH on abdomen includes , tubal, hysterectomy. She states this severe pain is new for her, but that she is getting worked up as an outpatient for PVCs in addition to dealing with GERD symptoms in the past. 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 Allergies Allergy/AdvReac Type Severity Reaction Status Date / Time Sulfa (Sulfonamide Allergy Severe ANAPHYLAXIS Verified 08/12/24 14:36 Antibiotics) cefaclor Allergy Intermediate HIVES Verified 08/12/24 14:36 ceftriaxone Allergy Intermediate HIVES Verified 08/12/24 14:36 Cephalosporins Allergy Intermediate HIVES Verified 08/12/24 14:36 Home Medications Medication Instructions Recorded Confirmed Type spironolactone 25 mg tablet 0 mg PO QAM 10/12/22 10/01/24 History metoprolol tartrate 25 mg tablet 25 mg PO BID #60 tabs 11/10/22 10/01/24 Rx amlodipine 10 mg tablet 10 mg PO QAM 04/06/23 10/01/24 History naloxegol 25 mg tablet (Movantik) 25 mg PO QAM PRN opioid induced 04/14/23 10/01/24 History constipation gabapentin 100 mg capsule 100 mg PO HS 07/04/23 10/01/24 History cholecalciferol (vitamin D3) 25 2,000 mcg PO QAM 12/19/23 10/01/24 History mcg (1,000 unit) tablet (Vitamin D3) escitalopram oxalate 20 mg tablet 20 mg PO DAILY 12/19/23 10/01/24 History (Lexapro) rosuvastatin 20 mg tablet 10 mg PO DAILY 12/19/23 10/01/24 History aspirin 81 mg tablet,delayed 81 mg PO QAM 10/01/24 10/01/24 History release Patient History Medical History Back injury recent back injury, treated at [facility] Emergency Room 05/01/23 - treated with pain medication and steroids at the time. doing better at this time. Anxiety and depression Dyslipidemia HTN (hypertension) Hx of steroid therapy lumbar steroid injection, 10/2022 [facility] History of stomach ulcers Gastritis hx GERD (gastroesophageal reflux disease) Leg edema bilateral Temporomandibular joint disorder clicking when eats Post traumatic stress disorder Hx of migraines Lumbar pain Degenerative disc disease Surgical History H/O radiofrequency ablation (RFA) of nerve of lumbar spine 04/04/23 & 04/06/[address] Cervantes Hx of cardiac catheterization 09/2022- having chest pain and PVC'S , no stents- follows w/ [facility] H/O breast augmentation History of esophagogastroduodenoscopy (EGD) History of colonoscopy History of section X 1 Vocal cord polyps removed multiple times History of tooth extraction Nausea and vomiting after administration of anesthetic agent History of hysterectomy partial History of bilateral tubal ligation Hx of shoulder surgery left shoulder x 2 History of tonsillectomy Family History Father Skin cancer Grandmother (Paternal) Stomach cancer Other No family history of adverse response to anesthesia Denies family history of Ovarian cancer Prostate cancer Breast cancer Colorectal cancer Social History Smoking Status: Current every day smoker Tobacco Type: Cigarettes Cigarettes Per Day: 40 CIG DAILY- advised; Second Hand Exposure: Yes (in the past); Do You Dip or Chew Tobacco: No; Tobacco Cessation Education Requested by Patient: No Hx Alcohol Use: No Hx Substance Use: No Preferred Language: Cook Islander Communication Ability: Effective Bilingual Kindergarten Teacher Required: No Beliefs That Will Affect Care: None marital status: Current Living Situation: Spouse Other Information That Helps Us Care for You: No Feels Safe at Home: Yes Safety Concerns: Feels Safe At This Time Diet: regular caffeine: Yes Physical Activity Frequency: Daily Seatbelt Use: always Sunscreen Use: Yes Assistive Devices: Glasses Review of Systems Constitutional: no fever and no chills Respiratory: + dyspnea Cardiovascular: + chest pain Gastrointestinal: + abdominal pain (epigastric) and + naus ea; no bloating, no vomiting, no change in bowel habits and no blood in stools Genitourinary: no problem reported Musculoskeletal: chronic unchanged back pain from baseline Physical Exam Physical Exam: awake/alert, no distress Constitutional: no acute distress Respiratory: normal respiratory effort (not requiring supplemental O2 to maintain sats >90) Gastrointestinal (Abdomen): Inspection/Auscultation: abdomen not distended Percussion/Palpation: + abdomen tender (epigastric) and abdomen soft Results & Data Vital Signs (Past 12 Hours) Vital Signs Temp Pulse Pulse Resp BP BP Pulse Ox 10/01/24 11:58 47 L 20 125/82 100 10/01/24 10:05 97.9 F 60 19 176/86 H 97 10/01/24 10:05 97 10/01/24 10:05 97.9 F 60 19 176/86 H 97 O2 Del Method 10/01/24 11:58 Room Air 10/01/24 10:05 Room Air 10/01/24 10:05 Room Air 10/01/24 10:05 Room Air Diagnostic Findings ABDOMINAL ULTRASOUND, RIGHT UPPER QUADRANT HISTORY: Acute right upper quadrant abdominal pain upper pain. COMPARISON: CT abdomen and pelvis 09/08/2023 FINDINGS: Pancreas: The pancreas demonstrates a normal echotexture. Liver: Unremarkable. Gallbladder: No cholelithiasis identified by ultrasound. The gallbladder wall is thickened measuring up to 3.6 m and appears edematous. Trace pericholecystic fluid. Positive sonographic Rodriguez sign. CBD: 5 mm Right kidney: No hydronephrosis. IMPRESSION: 1. No cholelithiasis identified by ultrasound, however there is gallbladder wall thickening with pericholecystic fluid and positive sonographic Rodriguez's sign. Findings are nonspecific and could be evaluated with nuclear medicine hepatobiliary scan. 2. No biliary ductal dilation. ACT 112: Negative or not required by law. Electronically signed by: Ubaldo Pan M.D. 10/01/2024 12:37 PM PG Care Time/CCT Total # of Minutes Spent Total Time Spent with Patient: Total time spent is greater than 50% in coordination of care (as documented) at patient's floor/unit and/or counseling patient: Coding Level of Care Code 26631 IN/OBS CONSULT LVL 3,45M Diagnoses Abnormal gallbladder ultrasound R93.2
[2024-10-01] MEDS: PANTOprazole 40 MG/10 ML SYR IV ONE (13:42)
[2024-10-01] MEDS: SODIUM CHLORIDE 0.9% 500 ML IV SCH (13:42)
--- NOTE | 2024-10-01 13:55 | History & Physical Report ---
Date of Service October 01, 2024 Assessment & Plan (1) Abnormal gallbladder ultrasound: (2) GERD (gastroesophageal reflux disease): (3) Frequent PVCs: (4) HTN (hypertension): (5) Current smoker: Plan The patient is a 53-year-old female with a past medical history including PVCs, tobacco use disorder, abnormal stress test leading to a cardiac catheterization 10/18/2022, recurrent isolated sleep paralysis, therapeutic opioid-induced constipation, sleep paralysis, long-term NSAID use, gastritis, intestinal metaplasia of gastric cardia, GERD, lymphocytic colitis, lumbar disc herniation, and history of nasal septoplasty. About 2 days ago she started develop symptoms of substernal chest pain, occasional epigastric and right upper quadrant pain, with some nausea intermittently but no vomiting. She has been taking her medications as directed, include including pantoprazole in the morning. She also takes Carafate daily as well. She reports that she had not noticed the right upper quadrant pain quite some much until ultrasound was performed and pressure was applied to her right upper quadrant area. Abnormal gallbladder ultrasound/epigastric and right upper quadrant pain/substernal chest pain- N.p.o. except medications Gallbladder ultrasound notes gallbladder wall thickening with pericholecystic fluid and positive sonographic Rodriguez sign. Findings are nonspecific and could be evaluated with nuclear medicine hepatobiliary scan. Order HIDA scan with ejection fraction Protonix 40 mg IV twice daily with first dose now NSS at 125 mL/h x 1 L Acetaminophen 1 g IV every 8 hours needed for mild pain or fever Morphine sulfate 4 mg IV every 3 hours as needed for moderate to severe pain Zofran 4 mg IV every 6 hours as needed Zosyn 4.5 g IV every 8 hours General Surgery consult has been made by the ED PVCs/ventricular bigeminy/substernal chest pain- Patient with normal cardiac catheterization 10/18/2022 Has had persistent PVCs Monitoring ED notes sinus bradycardia in the low 40s alternating with ventricular bigeminy in the 60s Decrease metoprolol tartrate from 25 mg twice daily to 12.5 mg p.o. twice daily Continue amlodipine 10 mg daily Continue rosuvastatin Hold spironolactone Consult cardiology Of note, patient has cardiac MRI scheduled tomorrow Anxiety and depression/PTSD- Continue Lexapro and gabapentin History of Present Illness Chief Complaint: The patient presents to the emergency department with complaint of 2 days of worsening substernal and epigastric chest pain, along with difficulty breathing. She reports that her symptoms are worse with exertion. She has had some nausea but no vomiting. She has a history of a cardiac catheterization on 10/18/2022, and has a cardiac MRI scheduled tomorrow. She does have a history of PVCs. She also has a history of smoking 60 cigarettes daily. She reports taking all her usual medications as directed. Primary Care Provider: MIGUEL BaxterC The patient is a 53-year-old female with a past medical history including PVCs, tobacco use disorder, abnormal stress test leading to a cardiac catheterization 10/18/2022, recurrent isolated sleep paralysis, therapeutic opioid-induced constipation, sleep paralysis, long-term NSAID use, gastritis, intestinal metaplasia of gastric cardia, GERD, lymphocytic colitis, lumbar disc herniation, and history of nasal septoplasty. About 2 days ago she started develop symptoms of substernal chest pain, occasional epigastric and right upper quadrant pain, with some nausea intermittently but no vomiting. She has been taking her medications as directed, include including pantoprazole in the morning. She also takes Carafate daily as well. She reports that she had not noticed the right upper quadrant pain quite some much until ultrasound was performed and pressure was applied to her right upper quadrant area. Allergies Allergy/AdvReac Type Severity Reaction Status Date / Time Sulfa (Sulfonamide Allergy Severe ANAPHYLAXIS Verified 08/12/24 14:36 Antibiotics) cefaclor Allergy Intermediate HIVES Verified 08/12/24 14:36 ceftriaxone Allergy Intermediate HIVES Verified 08/12/24 14:36 Cephalosporins Allergy Intermediate HIVES Verified 08/12/24 14:36 Home Medications Medication Instructions Recorded Confirmed Type spironolactone 25 mg tablet 0 mg PO QAM 10/12/22 10/01/24 History metoprolol tartrate 25 mg tablet 25 mg PO BID #60 tabs 11/10/22 10/01/24 Rx amlodipine 10 mg tablet 10 mg PO QAM 04/06/23 10/01/24 History naloxegol 25 mg tablet (Movantik) 25 mg PO QAM PRN opioid induced 04/14/23 10/01/24 History constipation gabapentin 100 mg capsule 100 mg PO HS 07/04/23 10/01/24 History cholecalciferol (vitamin D3) 25 2,000 mcg PO QAM 12/19/23 10/01/24 History mcg (1,000 unit) tablet (Vitamin D3) escitalopram oxalate 20 mg tablet 20 mg PO DAILY 12/19/23 10/01/24 History (Lexapro) rosuvastatin 20 mg tablet 10 mg PO DAILY 12/19/23 10/01/24 History aspirin 81 mg tablet,delayed 81 mg PO QAM 10/01/24 10/01/24 History release Past Med/Surg History Problem List Abnormal gallbladder ultrasound Frequent PVCs Colon cancer screening Encounter for pre-operative examination Current smoker 1,5 PPD Wheezing Cough URI (upper respiratory infection) Abnormal stress test Recurrent isolated sleep paralysis Tachycardia Palpitations Therapeutic opioid-induced constipation (OIC) Snoring Fatigue Sleep paralysis Constipation NSAID long-term use Chronic rhinitis Diarrhea Lumbar radiculopathy Breast implant status Dyspnea on exertion Epidermal cyst Intestinal metaplasia of gastric cardia GERD (gastroesophageal reflux disease) Leukoplakia of larynx Right lower quadrant abdominal pain (Acute) Migraine (Acute) Headache (Acute) Chest pain (Acute) Chronic pain follows with [facility] Lymphocytic colitis stable Chronic low back pain Lumbar facet joint syndrome Lumbar disc herniation History of nasal septoplasty Medical History Back injury recent back injury, treated at [facility] [place] Emergency Room 05/01/23 - treated with pain medication and steroids at the time. doing better at this time. Anxiety and depression Dyslipidemia HTN (hypertension) Hx of steroid therapy lumbar steroid injection, 10/2022 [facility] [place] History of stomach ulcers Gastritis hx GERD (gastroesophageal reflux disease) Leg edema bilateral Temporomandibular joint disorder clicking when eats Post traumatic stress disorder Hx of migraines Lumbar pain Degenerative disc disease Surgical History H/O radiofrequency ablation (RFA) of nerve of lumbar spine 04/04/23 & 04/06/[address] Cervantes Hx of cardiac catheterization 09/2022- having chest pain and PVC'S , no stents- follows w/ [facility] H/O breast augmentation History of esophagogastroduodenoscopy (EGD) History of colonoscopy History of section X 1 Vocal cord polyps removed multiple times History of tooth extraction Nausea and vomiting after administration of anesthetic agent History of hysterectomy partial History of bilateral tubal ligation Hx of shoulder surgery left shoulder x 2 History of tonsillectomy Family History Father Skin cancer Grandmother (Paternal) Stomach cancer Other No family history of adverse response to anesthesia Denies family history of Ovarian cancer Prostate cancer Breast cancer Colorectal cancer Social History Smoking Status: Current every day smoker Tobacco Type: Cigarettes Cigarettes Per Day: 40 CIG DAILY- advised; Second Hand Exposure: Yes (in the past); Do You Dip or Chew Tobacco: No; Hx Alcohol Use: Yes Alcohol type: beer, wine and hard liquor Hx Substance Use: No Preferred Language: Kazakh Communication Ability: Effective Regulatory Internship Required: No Beliefs That Will Affect Care: None marital status: Current Living Situation: Spouse and Family Feels Safe at Home: Yes Diet: regular caffeine: Yes Physical Activity Frequency: Daily Seatbelt Use: always Sunscreen Use: Yes Assistive Devices: Glasses Review of Systems Review of Systems: The patient denies palpitations, cough, lower extremity swelling, sore throat, fevers, chills, sweats, vomiting, diarrhea , constipation, pelvic pain, blood in urine or stool, dysuria, urinary frequency or urgency, lightheadedness, dizziness, headache, memory loss, loss of consciousness, rash, abnormal bruising or bleeding, imbalance, focal or generalized weakness, numbness or tingling in arms or legs, generalized arthralgias or myalgias, neck pain, or night sweats. The review of systems is otherwise negative other than for that already noted above, and at least 10 systems have been reviewed. Physical Exam Physical Exam: The patient is awake, alert and oriented 3, well developed and well nourished, normocephalic and atraumatic, lying in bed and in no acute distress. HEENT--PERRL, EOMI, mucous membranes and oropharynx mildly dry. Neck--supple. No JVD. No bruits. Thyroid normal, trachea midline, no adenopathy. Heart--normal S1 and S2. No murmurs, rubs or gallops. Lungs--clear bilaterally, no respiratory distress, no accessory muscle use. Abdomen--tender right upper quadrant and epigastric area. Extremities--no cyanosis or clubbing. No edema. There are good distal pulses b/l. Dermatologic--normal skin turgor, normal color, no abnormal lymph nodes, no rash. Neurologic--cranial nerves II through XII grossly intact. Rheumatologic--normal range of motion. Psychiatric--normal affect. Results & Data Results & Data Vital Signs (Past 12 Hours) Vital Signs Temp Pulse Pulse Resp BP BP Pulse Ox 10/01/24 13:28 45 L 18 155/81 H 100 10/01/24 11:58 47 L 20 125/82 100 10/01/24 10:05 36.6 C 60 19 176/86 H 97 10/01/24 10:05 97 10/01/24 10:05 36.6 C 60 19 176/86 H 97 O2 Del Method 10/01/24 13:28 Room Air 10/01/24 11:58 Room Air 10/01/24 10:05 Room Air 10/01/24 10:05 Room Air 10/01/24 10:05 Room Air Laboratory Results Laboratory Results WBC 9.50 K/ul (4.8-10.8) 10/01/24 10:19 RBC 4.59 M/uL (4.20-5.40) 10/01/24 10:19 Hgb 14.0 g/dl (12.0-16.0) 10/01/24 10:19 Hct 40.9 % (37.0-47.0) 10/01/24 10:19 MCV 89.1 fL (80.0-100.0) 10/01/24 10:19 MCH 30.5 pg (25.0-34.0) 10/01/24 10:19 MCHC 34.2 g/dL (32.0-36.0) 10/01/24 10:19 RDW Std Deviation 44.3 fL (36.4-46.3) 10/01/24 10:19 RDW Coeff of Floyd 13.4 % (11.5-14.5) 10/01/24 10:19 Plt Count 168 K/uL (130-400) 10/01/24 10:19 MPV 12.1 fL (9.4-12.4) 10/01/24 10:19 Immature Gran % (Auto) 0.2 % 10/01/24 10:19 Neut % (Auto) 65.7 % 10/01/24 10:19 Lymph % (Auto) 27.7 % 10/01/24 10:19 [place] % (Auto) 5.4 % 10/01/24 10:19 Eos % (Auto) 0.7 % 10/01/24 10:19 Baso % (Auto) 0.3 % 10/01/24 10:19 Neut # (Auto) 6.24 K/uL (1.40-6.50) 10/01/24 10:19 Lymph # (Auto) 2.63 K/uL (1.20-3.40) 10/01/24 10:19 [place] # (Auto) 0.51 K/uL (0.11-0.59) 10/01/24 10:19 Eos # (Auto) 0.07 K/uL (0.00-0.50) 10/01/24 10:19 Baso # (Auto) 0.03 K/uL (0.00-0.20) 10/01/24 10:19 Immature Gran # (Auto) 0.02 K/uL (0.01-0.20) 10/01/24 10:19 PT 11.4 Seconds (9.0-12.0) 10/01/24 10:19 INR 1.1 (0.9-1.1) 10/01/24 10:19 APTT 28 Seconds (21-31) 10/01/24 10:19 PTT Ratio 1.0 10/01/24 10:19 Sodium 139 mmol/L (136-145) 10/01/24 10:19 Potassium 4.5 mmol/L (3.5-5.1) 10/01/24 10:19 Chloride 110 mmol/L (98-107) H 10/01/24 10:19 Carbon Dioxide 24 mmol/L (21-32) 10/01/24 10:19 Anion Gap 5 (3-11) 10/01/24 10:19 BUN 14 mg/dl (6-23) 10/01/24 10:19 Creatinine 0.98 mg/dl (0.6-1.2) 10/01/24 10:19 Est Cr Clr Drug Dosing 68.5 ml/min 10/01/24 10:19 eGFR 69.88 10/01/24 10:19 BUN/Creatinine Ratio 14.3 (10-20) 10/01/24 10:19 Glucose 101 mg/dl (70-99(Fasting)) H 10/01/24 10:19 Calcium 9.0 mg/dl (8.6-10.3) 10/01/24 10:19 Magnesium 1.9 mg/dl (1.7-2.4) 10/01/24 10:19 Total Bilirubin 0.6 mg/dl (0.2-1.0) 10/01/24 10:19 AST 18 U/L (13-39) 10/01/24 10:19 ALT 25 U/L (7-52) 10/01/24 10:19 Alkaline Phosphatase 74 U/L (34-104) 10/01/24 10:19 Troponin I High Sens 2.5 pg/ml (0-14) 10/01/24 10:19 Total Protein 6.5 gm/dl (6.0-8.3) 10/01/24 10:19 Albumin 4.1 gm/dl (3.4-5.0) 10/01/24 10:19 Globulin 2.4 gm/dl (2.5-4.0) L 10/01/24 10:19 Albumin/Globulin Ratio 1.7 (0.9-2) 10/01/24 10:19 TSH 1.422 uIu/ml (0.300-4.500) 10/01/24 10:19 Impressions Chest X-Ray 10/01/24 10:25 XR chest 1V portable CLINICAL HISTORY: Dysrhythmia COMPARISON STUDY: 05/01/2023 FINDINGS: The cardiac and mediastinal contours are normal. There is no failure. There is no focal pulmonary consolidation. There are no pleural effusions. There are surgical changes involve the left shoulder. Overlying cardiac leads are evident. IMPRESSION: No active disease in the chest. ACT 112: Negative or not required by law. Electronically signed by: Marcial Alvarez M.D. 10/01/2024 10:57 AM Gallbladder Ultrasound 10/01/24 10:43 ABDOMINAL ULTRASOUND, RIGHT UPPER QUADRANT HISTORY: Acute right upper quadrant abdominal pain upper pain. COMPARISON: CT abdomen and pelvis 09/08/2023 FINDINGS: Pancreas: The pancreas demonstrates a normal echotexture. Liver: Unremarkable. Gallbladder: No cholelithiasis identified by ultrasound. The gallbladder wall is thickened measuring up to 3.6 m and appears edematous. Trace pericholecystic fluid. Positive sonographic Rodriguez sign. CBD: 5 mm Right kidney: No hydronephrosis. IMPRESSION: 1. No cholelithiasis identified by ultrasound, however there is gallbladder wall thickening with pericholecystic fluid and positive sonographic Rodriguez's sign. Findings are nonspecific and could be evaluated with nuclear medicine hepatobiliary scan. 2. No biliary ductal dilation. ACT 112: Negative or not required by law. Electronically signed by: Ubaldo Pan M.D. 10/01/2024 12:37 PM Code Status & VTE Plan Code Status Full code VTE Prophylaxis Plan VTE Prophylaxis will be ordered: Yes PG Care Time/CCT Total # of Minutes Spent Total Time Spent with Patient: Total time spent is greater than 50% in coordination of care (as documented) at patient's floor/unit and/or counseling patient: Coding Level of Care Code 99330 INT INP/OBS CARE 3/75MIN Diagnoses Abnormal gallbladder ultrasound R93.2 GERD (gastroesophageal reflux disease) K21.9 Frequent PVCs I49.3 HTN (hypertension) I10 Current smoker F17.200
[2024-10-01 14:06] LABS: Appearance Urine Clear (Clear); Glucose Urine UA Negative (Negative)
[2024-10-01] MEDS ORDERED: NITROGLYCERIN SL 0.4 MG/TAB TAB SL PRN (14:45)
--- NOTE | 2024-10-01 15:26 | Electrocardiogram Report ---
Test Reason : Blood Pressure : */* mmHG Vent. Rate : 53 BPM Atrial Rate : 53 BPM P-R Int : 134 ms QRS Dur : 70 ms QT Int : 416 ms P-R-T Axes : 66 61 39 degrees QTcB Int : 390 ms Sinus bradycardia with frequent Premature ventricular complexes Possible Left atrial enlargement Borderline ECG When compared with ECG of 09-Sep-2023 01:28, Vent. rate has decreased by 27 bpm Confirmed by Carlos Roche ([id number]) on 10/01/2024 3:25:51 PM Referred By: Confirmed By: Carlos Roche
--- NOTE | 2024-10-01 15:38 | XCELERA ---
[id number]
[2024-10-01] MEDS: metroNIDAZOLE 500 MG/100 ML BAG IV SCH (16:25)
[2024-10-01] MEDS: CIPROFLOXACIN / D5W 400 MG/200 ML BAG IV SCH (16:26)
--- NOTE | 2024-10-01 16:37 | Cardiology Consultation ---
Date of Consultation October 01, 2024 Assessment & Plan (1) Chest pain: (2) Frequent PVCs: (3) Mitral regurgitation: Plan 1. Chest pain: Her symptoms are atypical for ischemia and that they are longstanding in duration, positional and pleuritic. No elevation in her biomarkers to suggest ischemia or recent ACS. It is possible she has an element of pericarditis. It would be reasonable to consider a trial of nonsteroidals and colchicine if no other etiology is found (i.e. cholecystitis) 2. Frequent PVCs: This is in the setting of significant bradycardia. This is longstanding. Scheduled for an MRI to evaluate for infiltrative myocardial disease or possibly structural disease not seen easily on echocardiography. Overall LV function normal. Beta-tamela currently being held which seems reasonable. We can monitor the frequency of her PVCs. Perhaps will be less w ith a higher heart rate. History of Present Illness Reason for Consultation: Chest pain Requesting Physician: Arslan Attending Physician: Cheo Mcdaniels MD History of Present Illness The patient is a 53-year-old woman well-known to me from the outpatient setting where she is followed for frequent PVCs. She has had some mildly reduced LV systolic function over the years and most recently had some lower extremity edema that is felt to be related to venous insufficiency. The patient states that for approximately 4 days she been having some symptoms of chest discomfort. She describes this primarily as precordial with some radiation to the back and neck. Initially this was fairly intermittent in nature but lately became more constant. It waxes and wanes in severity and appears to change intensity with changes in position. Lying flat seems more comfortable. Sitting up is quite uncomfortable. Laying on her left side may be better than the right. Some pleuritic type symptoms as well. It does get worse with activity or movement. Some associated dyspnea. However, no orthopnea. She is also had some constitutional symptoms such as fatigue and just feeling unwell. Not generally aware of palpitations. Some dizziness at times. This has been an intermittent problem for many months. She will have "good days and bad days". No recent fevers or chills Allergies Allergy/AdvReac Type Severity Reaction Status Date / Time Sulfa (Sulfonamide Allergy Severe ANAPHYLAXIS Verified 08/12/24 14:36 Antibiotics) cefaclor Allergy Intermediate HIVES Verified 08/12/24 14:36 ceftriaxone Allergy Intermediate HIVES Verified 08/12/24 14:36 Cephalosporins Allergy Intermediate HIVES Verified 08/12/24 14:36 Home Medications Medication Instructions Recorded Confirmed Type spironolactone 25 mg tablet 0 mg PO QAM 10/12/22 10/01/24 History metoprolol tartrate 25 mg tablet 25 mg PO BID #60 tabs 11/10/22 10/01/24 Rx amlodipine 10 mg tablet 10 mg PO QAM 04/06/23 10/01/24 History naloxegol 25 mg tablet (Movantik) 25 mg PO QAM PRN opioid induced 04/14/23 10/01/24 History constipation gabapentin 100 mg capsule 100 mg PO HS 07/04/23 10/01/24 History cholecalciferol (vitamin D3) 25 2,000 mcg PO QAM 12/19/23 10/01/24 History mcg (1,000 unit) tablet (Vitamin D3) escitalopram oxalate 20 mg tablet 20 mg PO DAILY 12/19/23 10/01/24 History (Lexapro) rosuvastatin 20 mg tablet 10 mg PO DAILY 12/19/23 10/01/24 History aspirin 81 mg tablet,delayed 81 mg PO QAM 10/01/24 10/01/24 History release Patient History Medical History Back injury recent back injury, treated at [facility] Emergency Room 05/01/23 - treated with pain medication and steroids at the time. doing better at this time. Anxiety and depression Dyslipidemia HTN (hypertension) Hx of steroid therapy lumbar steroid injection, 10/2022 [facility] History of stomach ulcers Gastritis hx GERD (gastroesophageal reflux disease) Leg edema bilateral Temporomandibular joint disorder clicking when eats Post traumatic stress disorder Hx of migraines Lumbar pain Degenerative disc disease Surgical History H/O radiofrequency ablation (RFA) of nerve of lumbar spine 04/04/23 & 04/06/[address] Cervantes Hx of cardiac catheterization 09/2022- having chest pain and PVC'S , no stents- follows w/ [facility] H/O breast augmentation History of esophagogastroduodenoscopy (EGD) History of colonoscopy History of section X 1 Vocal cord polyps removed multiple times History of tooth extraction Nausea and vomiting after administration of anesthetic agent History of hysterectomy partial History of bilateral tubal ligation Hx of shoulder surgery left shoulder x 2 History of tonsillectomy Family History Father Skin cancer Grandmother (Paternal) Stomach cancer Other No family history of adverse response to anesthesia Denies family history of Ovarian cancer Prostate cancer Breast cancer Colorectal cancer Social History Smoking Status: Current every day smoker Tobacco Type: Cigarettes Cigarettes Per Day: 40 CIG DAILY- advised; Second Hand Exposure: Yes (in the past); Do You Dip or Chew Tobacco: No; Tobacco Cessation Education Requested by Patient: No Hx Alcohol Use: No Hx Substance Use: No Preferred Language: Romanian Communication Ability: Effective Unit Leader Required: No Beliefs That Will Affect Care: None marital status: Current Living Situation: Spouse Other Information That Helps Us Care for You: No Feels Safe at Home: Yes Safety Concerns: Feels Safe At This Time Diet: regular caffeine: Yes Physical Activity Frequency: Daily Seatbelt Use: always Sunscreen Use: Yes Assistive Devices: Glasses Review of Systems Review of Systems: Per HPI. She states that her lower extremity edema also waxes and wanes in severity. Certainly better in the morning worse in the evening. She has been using some compression stockings and trying to keep her legs elevated. Physical Exam Physical Exam: She is alert and oriented x3. Mood affect appear normal. She answered all questions appropriately. She appeared uncomfortable at times. HEENT: Sclerae are anicteric. Pupils are equal and reactive to light and accommodation. Extraocular movements were intact. Neuro: Cranial nerves intact Lungs: Lungs are clear to auscultation bilaterally. There are no rales wheezes or rhonchi. She has normal respiratory effort without use of accessory muscles. There is normal pulmonary excursion. Cardiac: The rhythm was regular. S1 and S2 were normal. There are no murmurs on examination. The PMI was not markedly displaced on palpation. Extremities: Patient has bilateral radial pulses that are equal in intensity. There is no evidence cyanosis or clubbing. Very mild lower extremity edema. Skin: There are no rashes noted on examination today. Results & Data Vital Signs (Past 12 Hours) Vital Signs Temp Pulse Pulse Resp BP BP Pulse Ox 10/01/24 14:45 36.3 C L 55 L 18 127/68 99 10/01/24 13:28 45 L 18 155/81 H 100 10/01/24 11:58 47 L 20 125/82 100 10/01/24 10:05 36.6 C 60 19 176/86 H 97 10/01/24 10:05 97 10/01/24 10:05 36.6 C 60 19 176/86 H 97 O2 Del Method 10/01/24 14:45 Room Air 10/01/24 13:28 Room Air 10/01/24 11:58 Room Air 10/01/24 10:05 Room Air 10/01/24 10:05 Room Air 10/01/24 10:05 Room Air Laboratory Results Abnormal Lab Results 10/01/24 10/01/24 10/01/24 10:19 13:52 15:22 WBC 9.50 RBC 4.59 Hgb 14.0 Hct 40.9 MCV 89.1 MCH 30.5 MCHC 34.2 RDW Std Deviation 44.3 RDW Coeff of Floyd 13.4 Plt Count 168 MPV 12.1 Immature Gran % (Auto) 0.2 Neut % (Auto) 65.7 Lymph % (Auto) 27.7 [place] % (Auto) 5.4 Eos % (Auto) 0.7 Baso % (Auto) 0.3 Neut # (Auto) 6.24 Lymph # (Auto) 2.63 [place] # (Auto) 0.51 Eos # (Auto) 0.07 Baso # (Auto) 0.03 Immature Gran # (Auto) 0.02 PT 11.4 INR 1.1 APTT 28 PTT Ratio 1.0 Sodium 139 Potassium 4.5 Chloride 110 H Carbon Dioxide 24 Anion Gap 5 BUN 14 Creatinine 0.98 Est Cr Clr Drug Dosing 68.5 eGFR 69.88 BUN/Creatinine Ratio 14.3 Glucose 101 H Calcium 9.0 Magnesium 1.9 Total Bilirubin 0.6 AST 18 ALT 25 Alkaline Phosphatase 74 Troponin I High Sens 2.5 3.0 Total Protein 6.5 Albumin 4.1 Globulin 2.4 L Albumin/Globulin Ratio 1.7 TSH 1.422 Urine Color Yellow Urine Appearance Clear Urine pH 6.5 Ur Specific [place] 1.010 Urine Protein Negative Urine Glucose (UA) Negative Urine Ketones Negative Urine Blood Negative Urine Nitrite Negative Urine Bilirubin Negative Urine Urobilinogen Negative Ur Leukocyte Esterase Negative Urine Comment Diagnostic Findings Echocardiogram 10/01/2024: Normal LV systolic function with ejection fraction of 50%. Mild mitral regurgitation. Mild dilation of the inferior vena cava. ECG Additional Comments: EKG demonstrated sinus bradycardia with PVCs PG Care Time/CCT Total # of Minutes Spent Total Time Spent with Patient: Total time spent is greater than 50% in coordination of care (as documented) at patient's floor/unit and/or counseling patient: Coding Level of Care Code 65172 IN/OBS CONSULT LVL 4,60M Diagnoses Chest pain R07.9 Frequent PVCs I49.3 Mitral regurgitation I34.0
[2024-10-01] MEDS: MoRPHine SULFATE 4 MG/ML 1 ML CARP\\VIAL IV PRN (19:25)
[2024-10-01] MEDS: PANTOprazole 40 MG/10 ML SYR IV SCH (20:50)
[2024-10-01] MEDS: GABAPENTIN 100 MG CAP PO SCH (20:50)
[2024-10-01] MEDS ORDERED: METOPROLOL TARTRATE 25 MG TAB PO SCH (21:00)
[2024-10-01] MEDS ORDERED: PIPERACILLIN/TAZOBACTAM 4.5 GM/100 ML BAG IV SCH (22:00)
[2024-10-01] MEDS: ACETAMINOPHEN 1,000 MG/100 ML VIAL IV PRN (22:42)
[2024-10-02 05:50] LABS: Hematocrit (blood only) 35.9 % (37.0-47.0); Hemoglobin 11.9 g/dl (12.0-16.0); Immature Granulocytes # (auto) 0.01 K/uL (0.01-0.20); Immature Granulocytes % (auto) 0.2 %; Mean Corpuscular Hemoglobin 29.8 pg (25.0-34.0); Mean Corpuscular Volume 90.0 fL (80.0-100.0); Platelet Count 141 K/uL (130-400); RDW Standard Deviation 45.1 fL (36.4-46.3); Red Blood Count 3.99 M/uL (4.20-5.40); White Blood Count 6.53 K/ul (4.8-10.8)
[2024-10-02 06:39] LABS: Anion Gap 4 (3-11); Bilirubin,Total 0.4 mg/dl (0.2-1.0); Calcium 8.5 mg/dl (8.6-10.3); Carbon Dioxide 24 mmol/L (21-32); Chloride 112 mmol/L (98-107); Magnesium 1.8 mg/dl (1.7-2.4); Potassium 4.8 mmol/L (3.5-5.1); Sodium 140 mmol/L (136-145)
[2024-10-02 06:46] LABS: Alanine Aminotransferase 18 U/L (7-52); Albumin Globulin Ratio 1.8 (0.9-2); Alkaline Phosphatase 59 U/L (34-104); Blood Urea Nitrogen 14 mg/dl (6-23); Creatinine Clr Calc Pharmacy 58.4 ml/min; Globulin 1.8 gm/dl (2.5-4.0); Glucose 123 mg/dl (70-99(Fasting)); Total Protein 5.1 gm/dl (6.0-8.3)
--- NOTE | 2024-10-02 07:39 | Hospitalist Progress Note ---
Date of Service October 02, 2024 Assessment & Plan (1) Abnormal gallbladder ultrasound: (2) GERD (gastroesophageal reflux disease): (3) Frequent PVCs: (4) HTN (hypertension): (5) Current smoker: Plan The patient is a 53-year-old female with a past medical history including PVCs, tobacco use disorder, abnormal stress test leading to a cardiac catheterization 10/18/2022, recurrent isolated sleep paralysis, therapeutic opioid-induced constipation, sleep paralysis, long-term NSAID use, gastritis, intestinal metaplasia of gastric cardia, GERD, lymphocytic colitis, lumbar disc herniation, and history of nasal septoplasty. About 2 days ago she started develop symptoms of substernal chest pain, occasional epigastric and right upper quadrant pain, with some nausea intermittently but no vomiting. She has been taking her medications as directed, include including pantoprazole in the morning. She also takes Carafate daily as well. She reports that she had not noticed the right upper quadrant pain quite some much until ultrasound was performed and pressure was applied to her right upper quadrant area. #Epigastric and right upper quadrant pain/substernal chest pain Lipase added to morning labs to assess for pancreatitis. Unclear etiology at this time as lower down pain I'd expect and not worse on lying making pericarditis less likely. Will need to re-evaluate following HIDA and lipase. #Abnormal gallbladder ultrasound N.p.o. except medications pending HIDA scan Gallbladder ultrasound notes gallbladder wall thickening with pericholecystic fluid and positive sonographic Rodriguez sign. Findings are nonspecific and could be evaluated with nuclear medicine hepatobiliary scan. Appreciate general surgery recommendations #PVCs/ventricular bigeminy/substernal chest pain- Patient with normal cardiac catheterization 10/18/2022 Has had persistent PVCs Monitoring ED notes sinus bradycardia in the low 40s alternating with ventricular bigeminy in the 60s Decrease metoprolol tartrate from 25 mg twice daily to 12.5 mg p.o. twice daily Continue amlodipine 10 mg daily Continue rosuvastatin Hold spironolactone Appreciate cardiology consult Of note, patient has cardiac MRI which will need to be rescheduled Anxiety and depression/PTSD- Continue Lexapro and gabapentin VTE Prophylaxis - low risk, encourage ambulation Disposition - stable for downgrade to med/surg Admission and Anticipated Discharge Date Admission Date: October 01, 2024 Subjective Mild improvement overnight but ongoing chest/epigastric pain. Worse when up and moving around. No worse on lying flat. Worse with nausea with eating. No dysphagia or odynophagia. Prior EGD in 2019 showed moderate Review of Systems Review of Systems: All systems reviewed & are unremarkable except as noted in HPI & below Physical Exam Respiratory: normal respiratory effort, lungs clear to auscultation Cardiovascular: RRR, no murmur, no edema Gastrointestinal (Abdomen): Inspection/Auscultation: abdomen normal to inspection; abdomen not distended Percussion/Palpation: + abdomen tender (epigastric) and abdomen soft; no guarding and abdomen not rigid Results & Data Results & Data Vital Signs (Past 12 Hours) Vital Signs Temp Pulse Resp BP Pulse Ox O2 Del Method O2 Flow Rate 10/02/24 07:35 36.5 C 59 L 19 108/68 97 Nasal Cannula 2 10/02/24 03:27 92 Nasal Cannula 2 10/02/24 03:16 36.5 C 58 L 16 99/55 L 88 L Room Air 10/01/24 22:28 36.4 C L 60 16 136/80 95 Room Air 10/01/24 19:53 Room Air 10/01/24 19:52 36.7 C 48 L 18 109/73 96 Room Air PG Care Time/CCT Total # of Minutes Spent Total Time Spent with Patient: Total time spent is greater than 50% in coordination of care (as documented) at patient's floor/unit and/or counseling patient: Coding Level of Care Code 41141 SUB INP/OBS CARE 3/50MIN Diagnoses Abnormal gallbladder ultrasound R93.2 GERD (gastroesophageal reflux disease) K21.9 Frequent PVCs I49.3 HTN (hypertension) I10 Current smoker F17.200
[2024-10-02] MEDS: NICOTINE 21 MG/24 HR TDSY TD SCH (08:09)
[2024-10-02] MEDS: REMOVE NICODERM PATCH SCH (08:09)
[2024-10-02] MEDS: ESCITALOPRAM OXALATE 20 MG TAB PO SCH (08:21)
[2024-10-02] MEDS: ROSUVASTATIN CALCIUM 10 MG TAB PO SCH (08:21)
[2024-10-02] MEDS: ASPIRIN 81 MG ECTAB PO SCH (08:21)
[2024-10-02 09:36] LABS: Lipase 16 U/L (11-82)
[2024-10-02] MEDS: SINCALIDE IV ONE (11:23)
[2024-10-02] MEDS: SODIUM CHLORIDE 0.9% IV ONE (11:23)
--- NOTE | 2024-10-02 11:31 | Nuclear Medicine Report ---
NUCLEAR MEDICINE HEPATOBILIARY SCAN WITH GALLBLADDER EJECTION FRACTION CLINICAL HISTORY: Epigastric pain. COMPARISON: CT of the abdomen and pelvis September 08, 2023 and right upper quadrant ultrasound October 01, 2024. TECHNIQUE: 5.6 mCi of technetium 99m Choletec IV was injected at 9:30 AM on October 02, 2024. Immedia tely following injection, imaging of the abdomen was carried out for 60 minutes in the anterior proje ction. At this time, 1.5 of sincalide was injected IV as per protocol. Gallbladder ejection fraction was estimated. Patient was nauseated following sincalide administration. FINDINGS: Hepatic uptake of radiotracer is prompt and homogeneous. Radiotracer activity is identified within the gallbladder at 20 minutes, common bile duct at 10 minutes and small bowel at 10 minutes. There is normal distribution of radiotracer. Following administration of sincalide, gallbladder eject ion fraction was calculated at 75%. Normal is greater than 30-35%. IMPRESSION: 1. Normal hepatobiliary scan. No evidence for acute or chronic cholecystitis. 2. Normal gallbladder ejection fraction of 75%. ACT 112: Negative or not required by law. Electronically signed by: Lukasz Flanagan M.D. 10/02/2024 11:30 AM
--- NOTE | 2024-10-02 12:23 | Cardiology Progress Note ---
Date of Service October 02, 2024 Assessment & Plan (1) Chest pain: (2) Frequent PVCs: (3) Mitral regurgitation: Plan 1. Chest pain: Now that we have excluded acute cholecystitis Effico be reasonable to try some nonsteroidal medications and colchicine. 2. Frequent PVCs: Her beta-tamela was held yesterday. PVC frequency did increase. I would simply resume her usual outpatient beta-blockade. Admission and Anticipated Discharge Date Admission Date: October 01, 2024 Subjective This afternoon the patient claimed to be feeling somewhat better. She continues to have some symptoms of chest discomfort which are still positional. Somewhat improved from yesterday. She had some improvement with narcotics, but this did not relieve her symptoms entirely. Ambulatory around her room without dizziness today. Review of Systems Review of Systems: Per HPI. Physical Exam Physical Exam: She is alert and oriented x3. Mood affect appear normal. She answered all questions appropriately. HEENT: Sclerae are anicteric. Pupils are equal and reactive to light and accommodation. Extraocular movements were intact. Neuro: Cranial nerves intact Lungs: Lungs are clear to auscultation bilaterally. There are no rales wheezes or rhonchi. She has normal respiratory effort without use of accessory muscles. There is normal pulmonary excursion. Cardiac: The rhythm was regular. S1 and S2 were normal. There are no murmurs on examination. The PMI was not markedly displaced on palpation. Extremities: Patient has bilateral radial pulses that are equal in intensity. There is no evidence cyanosis or clubbing. Skin: There are no rashes noted on examination today. Results & Data Vital Signs (Past 12 Hours) Vital Signs Temp Pulse Pulse Resp BP Pulse Ox O2 Del Method 10/02/24 11:36 130/85 10/02/24 11:25 36.3 C L 20 96 Room Air 10/02/24 07:51 56 L 10/02/24 07:37 Nasal Cannula 10/02/24 07:35 36.5 C 59 L 19 108/68 97 Nasal Cannula 10/02/24 03:27 92 Nasal Cannula 10/02/24 03:16 36.5 C 58 L 16 99/55 L 88 L Room Air O2 Flow Rate 10/02/24 11:36 10/02/24 11:25 10/02/24 07:51 10/02/24 07:37 2 08/06/25 07:35 2 10/02/24 03:27 2 10/02/24 03:16 Laboratory Results Abnormal Lab Results 10/01/24 10/01/24 10/02/24 13:52 15:22 05:07 WBC 6.53 RBC 3.99 L Hgb 11.9 L Hct 35.9 L MCV 90.0 MCH 29.8 MCHC 33.1 RDW Std Deviation 45.1 RDW Coeff of Floyd 13.6 Plt Count 141 MPV 12.1 Immature Gran % (Auto) 0.2 Neut % (Auto) 44.8 Lymph % (Auto) 46.7 [place] % (Auto) 6.7 Eos % (Auto) 1.1 Baso % (Auto) 0.5 Neut # (Auto) 2.93 Lymph # (Auto) 3.05 [place] # (Auto) 0.44 Eos # (Auto) 0.07 Baso # (Auto) 0.03 Immature Gran # (Auto) 0.01 Sodium 140 Potassium 4.8 Chloride 112 H Carbon Dioxide 24 Anion Gap 4 BUN 14 Creatinine 1.15 Est Cr Clr Drug Dosing 58.4 eGFR 57.68 BUN/Creatinine Ratio 12.2 Glucose 123 H Calcium 8.5 L Magnesium 1.8 Total Bilirubin 0.4 AST 13 ALT 18 Alkaline Phosphatase 59 Troponin I High Sens 3.0 Total Protein 5.1 L D Albumin 3.3 L Globulin 1.8 L Albumin/Globulin Ratio 1.8 Lipase 16 Urine Color Yellow Urine Appearance Clear Urine pH 6.5 Ur Specific [place] 1.010 Urine Protein Negative Urine Glucose (UA) Negative Urine Ketones Negative Urine Blood Negative Urine Nitrite Negative Urine Bilirubin Negative Urine Urobilinogen Negative Ur Leukocyte Esterase Negative Urine Comment Diagnostic Findings HIDA scan negative for hepatobiliary disease. PG Care Time/CCT Total # of Minutes Spent Total Time Spent with Patient: Total time spent is greater than 50% in coordination of care (as documented) at patient's floor/unit and/or counseling patient: Coding Level of Care Code 59433 SUB INP/OBS CARE 2/35MIN Diagnoses Chest pain R07.9 Frequent PVCs I49.3 Mitral regurgitation I34.0
--- NOTE | 2024-10-02 12:24 | Surgery Progress Note ---
Date of Service October 02, 2024 Assessment & Plan (1) Abnormal gallbladder ultrasound: Plan: pt here w/ left sided chest pain and SOB US on admission saw no gallstones, but reported GB wall thickening and trace fluid WBC and LFTs unremarkable HIDA obtained today for further evaluation showed no cholecystitis she does report a h/o gastric ulcers and undergoing EGD in the past w/ dr. rosario, last i see in our system is from 2019 showing gastritis. could consider GI consult for ?egd to rule out ulcer given her symptoms She is on BID ppi cardiology also on board okay for diet if no other potential procedures, but no plans for lap alice from our standpoint As above. HIDA scan not showing acute cholecystitis. Awaiting gastroenterology consultation. Recommend EGD considering her smoking history. Will continue to follow along however no surgical plans at this time. Admission and Anticipated Discharge Date Admission Date: October 01, 2024 Subjective Patient reports her left sided chest pain is a bit improved. No SOB today. She reports some intermittent nausea she believes may be related to her medications. + back pain after HIDA. History of stomach ulcers and EGDs in the past. Physical Exam Physical Exam: awake/alert, no distress Gastrointestinal (Abdomen): epigastric pain Results & Data Vital Signs (Past 12 Hours) Vital Signs Temp Pulse Pulse Resp BP Pulse Ox O2 Del Method 10/02/24 11:36 130/85 10/02/24 11:25 97.3 F L 20 96 Room Air 10/02/24 07:51 56 L 10/02/24 07:37 Nasal Cannula 10/02/24 07:35 97.7 F 59 L 19 108/68 97 Nasal Cannula 10/02/24 03:27 92 Nasal Cannula 10/02/24 03:16 97.7 F 58 L 16 99/55 L 88 L Room Air O2 Flow Rate 10/02/24 11:36 10/02/24 11:25 10/02/24 07:51 10/02/24 07:37 2 10/02/24 07:35 2 10/02/24 03:27 2 10/02/24 03:16 PG Care Time/CCT Total # of Minutes Spent Total Time Spent with Patient: Total time spent is greater than 50% in coordination of care (as documented) at patient's floor/unit and/or counseling patient: Coding Level of Care Code 51597 SUB INP/OBS CARE /25MIN Diagnoses Abnormal gallbladder ultrasound R93.2
[2024-10-02] MEDS: ONDANSETRON INJ 2 MG/ML 2 ML VIAL IV PRN (13:25)
--- NOTE | 2024-10-02 14:16 | History & Physical Report ---
Date of Service October 02, 2024 Assessment & Plan (1) Epigastric pain: Plan: 53-year-old female with a past medical history including PVCs, tobacco use disorder, abnormal stress test leading to a cardiac catheterization 10/18/2022, recurrent isolated sleep paralysis, therapeutic opioid-induced constipation, sleep paralysis, long-term NSAID use, gastritis, intestinal metaplasia of gastric cardia, GERD, lymphocytic colitis, lumbar disc herniation, and history of nasal septoplasty. About 2 days ago she started develop symptoms of substernal chest pain, occasional epigastric and right upper quadrant pain, with some nausea intermittently but no vomiting. HIDA scan normal and ultrasound unrevealing for any stones. She still continues to have chest pain and epigastric abdominal pain and has had some significant gastritis with some focal intestinal metaplasia in the cardia in past. Will do an EGD tomorrow to rule out any ulceration and also do some biopsies for gastric mapping. In the meantime continue PPI and Carafate. N.p.o. after midnight she agrees with plan. Admission and Anticipated Discharge Date Admission Date: October 01, 2024 History of Present Illness Chief Complaint: Epigastric abdominal pain and chest pain Primary Care Provider: Anastacio Magana NP-C 53-year-old female with a past medical history including PVCs, tobacco use disorder, abnormal stress test leading to a cardiac catheterization 10/18/2022, recurrent isolated sleep paralysis, therapeutic opioid-induced constipation, sleep paralysis, long-term NSAID use, gastritis, intestinal metaplasia of gastric cardia, GERD, lymphocytic colitis, lumbar disc herniation, and history of nasal septoplasty. About 2 days ago she started develop symptoms of substernal chest pain, occasional epigastric and right upper quadrant pain, with some nausea intermittently but no vomiting. She has been taking her medications as directed, include including pantoprazole in the morning. She also takes Carafate. Ultrasound showed some thickening around the gallbladder but HIDA scan showed a normal EF of 75%. she also went for cardiac workup, echo showed a low normal EF without any significant findings cardiology wanted to try colchicine and NSAIDs for treatment of acute pericarditis. Patient does note she continues to smoke and has had chronic gastritis with some early shallow ulcerations. Allergies Allergy/AdvReac Type Severity Reaction Status Date / Time Sulfa (Sulfonamide Allergy Severe ANAPHYLAXIS Verified 08/12/24 14:36 Antibiotics) cefaclor Allergy Intermediate HIVES Verified 08/12/24 14:36 ceftriaxone Allergy Intermediate HIVES Verified 08/12/24 14:36 Cephalosporins Allergy Intermediate HIVES Verified 08/12/24 14:36 Home Medications Medication Instructions Recorded Confirmed Type spironolactone 25 mg tablet 0 mg PO QAM 10/12/22 10/01/24 History metoprolol tartrate 25 mg tablet 25 mg PO BID #60 tabs 11/10/22 10/01/24 Rx amlodipine 10 mg tablet 10 mg PO QAM 04/06/23 10/01/24 History naloxegol 25 mg tablet (Movantik) 25 mg PO QAM PRN opioid induced 04/14/23 10/01/24 History constipation gabapentin 100 mg capsule 100 mg PO HS 07/04/23 10/01/24 History cholecalciferol (vitamin D3) 25 2,000 mcg PO QAM 12/19/23 10/01/24 History mcg (1,000 unit) tablet (Vitamin D3) escitalopram oxalate 20 mg tablet 20 mg PO DAILY 12/19/23 10/01/24 History (Lexapro) rosuvastatin 20 mg tablet 10 mg PO DAILY 12/19/23 10/01/24 History aspirin 81 mg tablet,delayed 81 mg PO QAM 10/01/24 10/01/24 History release Past Med/Surg History Problem List Epigastric pain Mitral regurgitation Tobacco use (Acute) Right upper quadrant abdominal pain (Acute) Acute acalculous cholecystitis (Acute) Abnormal gallbladder ultrasound Frequent PVCs Colon cancer screening Encounter for pre-operative examination Current smoker 1,5 PPD Wheezing Cough URI (upper respiratory infection) Abnormal stress test Recurrent isolated sleep paralysis Tachycardia Palpitations Therapeutic opioid-induced constipation (OIC) Snoring Fatigue Sleep paralysis Constipation NSAID long-term use Chronic rhinitis Diarrhea Lumbar radiculopathy Breast implant status Dyspnea on exertion Epidermal cyst Intestinal metaplasia of gastric cardia GERD (gastroesophageal reflux disease) Leukoplakia of larynx Right lower quadrant abdominal pain (Acute) Migraine (Acute) Headache (Acute) Chest pain (Acute) Chronic pain follows with [facility] Lymphocytic colitis stable Chronic low back pain Lumbar facet joint syndrome Lumbar disc herniation History of nasal septoplasty Medical History Back injury recent back injury, treated at [facility] Emergency Room 05/01/23 - treated with pain medication and steroids at the time. doing better at this time. Anxiety and depression Dyslipidemia HTN (hypertension) Hx of steroid therapy lumbar steroid injection, 10/2022 [facility] History of stomach ulcers Gastritis hx GERD (gastroesophageal reflux disease) Leg edema bilateral Temporomandibular joint disorder clicking when eats Post traumatic stress disorder Hx of migraines Lumbar pain Degenerative disc disease Surgical History H/O radiofrequency ablation (RFA) of nerve of lumbar spine 04/04/23 & 04/06/[address] Cervantes Hx of cardiac catheterization 09/2022- having chest pain and PVC'S , no stents- follows w/ [facility] H/O breast augmentation History of esophagogastroduodenoscopy (EGD) History of colonoscopy History of section X 1 Vocal cord polyps removed multiple times History of tooth extraction Nausea and vomiting after administration of anesthetic agent History of hysterectomy partial History of bilateral tubal ligation Hx of shoulder surgery left shoulder x 2 History of tonsillectomy Family History Father Skin cancer Grandmother (Paternal) Stomach cancer Other No family history of adverse response to anesthesia Denies family history of Ovarian cancer Prostate cancer Breast cancer Colorectal cancer Social History Smoking Status: Current every day smoker Tobacco Type: Cigarettes Cigarettes Per Day: 40 CIG DAILY- advised; Second Hand Exposure: Yes (in the past); Do You Dip or Chew Tobacco: No; Tobacco Cessation Education Requested by Patient: No Hx Alcohol Use: No Hx Substance Use: No Preferred Language: Czech Communication Ability: Effective 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 Tech Required: No Beliefs That Will Affect Care: None marital status: Current Living Situation: Spouse Other Information That Helps Us Care for You: No Feels Safe at Home: Yes Safety Concerns: Feels Safe At This Time Diet: regular caffeine: Yes Physical Activity Frequency: Daily Seatbelt Use: always Sunscreen Use: Yes Assistive Devices: Glasses Review of Systems All systems reviewed & are unremarkable except as noted in HPI & below Physical Exam Physical Exam: Physical Exam: General: Well nourished and well developed in NAD HEENT: EOMI, PERRL Neck: trachea midline, no lad Lungs: CTA b, bilateral bs present Heart: RRR, no M and no edema Abd: soft, NT/ND, NABS, epi and chest pain Musculoskeletal: no c/c/e, normal strength B Neuro: CN2-12 intact, normal gait, normal strength Psych: normal affect and mood, euthymic. Results & Data Vital Signs (Past 12 Hours) Vital Signs Temp Pulse Pulse Resp BP Pulse Ox O2 Del Method 10/02/24 11:36 130/85 10/02/24 11:25 36.3 C L 20 96 Room Air 10/02/24 07:51 56 L 10/02/24 07:37 Nasal Cannula 10/02/24 07:35 36.5 C 59 L 19 108/68 97 Nasal Cannula 10/02/24 03:27 92 Nasal Cannula 10/02/24 03:16 36.5 C 58 L 16 99/55 L 88 L Room Air O2 Flow Rate 10/02/24 11:36 10/02/24 11:25 10/02/24 07:51 10/02/24 07:37 2 10/02/24 07:35 2 10/02/24 03:27 2 10/02/24 03:16 Code Status & VTE Plan VTE Prophylaxis Plan VTE Prophylaxis will be ordered: Yes Coding Level of Care Code 64946 INT INP/OBS CARE 3/75MIN Diagnoses Epigastric pain R10.13
[2024-10-03 06:18] LABS: Hematocrit (blood only) 36.8 % (37.0-47.0); Hemoglobin 12.5 g/dl (12.0-16.0); Immature Granulocytes # (auto) 0.02 K/uL (0.01-0.20); Immature Granulocytes % (auto) 0.3 %; Mean Corpuscular Hemoglobin 29.8 pg (25.0-34.0); Mean Corpuscular Volume 87.6 fL (80.0-100.0); Platelet Count 144 K/uL (130-400); RDW Standard Deviation 42.5 fL (36.4-46.3); Red Blood Count 4.20 M/uL (4.20-5.40); White Blood Count 7.97 K/ul (4.8-10.8)
[2024-10-03 06:34] LABS: Alanine Aminotransferase 15.0 U/L (7-52); Albumin Globulin Ratio 1.7 (0.9-2); Alkaline Phosphatase 60.0 U/L (34-104); Anion Gap 6.0 (3-11); Bilirubin,Total 0.5 mg/dl (0.2-1.0); Blood Urea Nitrogen 13.0 mg/dl (6-23); Calcium 8.7 mg/dl (8.6-10.3); Carbon Dioxide 23.0 mmol/L (21-32); Chloride 110.0 mmol/L (98-107); Creatinine Clr Calc Pharmacy 58.4 ml/min; Globulin 2.0 gm/dl (2.5-4.0); Glucose 96.0 mg/dl (70-99(Fasting)); Magnesium 1.8 mg/dl (1.7-2.4); Potassium 4.2 mmol/L (3.5-5.1); Sodium 139.0 mmol/L (136-145); Total Protein 5.4 gm/dl (6.0-8.3)
--- NOTE | 2024-10-03 11:02 | History & Physical Bridge Note ---
Date of Service October 03, 2024 History & Physical Bridge Note I have examined the patient, reviewed the History & Physical and in the interval since the performance of the History & Physical I have noted the following changes of clinical significance: no changes noted. patient still with some epigastric pain. no chest pain/sob. she has been NPO. rest of GI ros are unremarkable. - will plan for EGD today to further evaluation.
--- NOTE | 2024-10-03 13:49 | Anesthesiology Consultation ---
Date of Service October 03, 2024 Assessment & Plan Consults Requested medical & cardiac Pulmonary ASA ASA2 Proposed Anesthesia Anesthesia Type: MAC Risk / Benefits Reviewed With: PT / POA / Parent / Guardian, Accepts Plan and Informed Consent Obtained History Surgery Operation Date: 10/03/24 16:45 Proposed Procedures p Esophagogastroduodenoscopy Silvio Anguiano MD Pt with chest pain and nausea on admission with normal cardiac testing. Now for EGD Height/Weight Height: 5 ft 8 in Weight: 74.9 kg Allergies Allergy/AdvReac Type Severity Reaction Status Date / Time Sulfa (Sulfonamide Allergy Severe ANAPHYLAXIS Verified 08/12/24 14:36 Antibiotics) cefaclor Allergy Intermediate HIVES Verified 08/12/24 14:36 ceftriaxone Allergy Intermediate HIVES Verified 08/12/24 14:36 Cephalosporins Allergy Intermediate HIVES Verified 08/12/24 14:36 Medications Home Medications Medication Instructions Recorded Confirmed Last Taken spironolactone 25 mg tablet 0 mg PO QAM 10/12/22 10/01/24 09/08/23 metoprolol tartrate 25 mg tablet 25 mg PO BID #60 tabs 11/10/22 10/01/24 10/01/24 amlodipine 10 mg tablet 10 mg PO QAM 04/06/23 10/01/24 10/01/24 naloxegol 25 mg tablet (Movantik) 25 mg PO QAM PRN opioid induced 04/14/23 10/01/24 Unknown constipation gabapentin 100 mg capsule 100 mg PO HS 07/04/23 10/01/24 09/07/23 cholecalciferol (vitamin D3) 25 2,000 mcg PO QAM 12/19/23 10/01/24 10/01/24 mcg (1,000 unit) tablet (Vitamin D3) escitalopram oxalate 20 mg tablet 20 mg PO DAILY 12/19/23 10/01/24 Unknown (Lexapro) rosuvastatin 20 mg tablet 10 mg PO DAILY 12/19/23 10/01/24 Unknown aspirin 81 mg tablet,delayed 81 mg PO QAM 10/01/24 10/01/24 10/01/24 release Active Medications Generic Name Dose Route Start Last Admin Trade Name Freq PRN Reason Stop Dose Admin Amlodipine Besylate 10 mg 10/02/24 09:00 10/03/24 08:37 Amlodipine Besylate 5 Mg Tab PO 11/01/24 08:59 10 mg QAM JOHN Administration Aspirin 81 mg 10/02/24 09:00 10/03/24 08:38 Aspirin 81 Mg Ectab PO 11/01/24 08:59 81 mg QAM JOHN Administration Escitalopram Oxalate 20 mg 10/02/24 09:00 10/03/24 08:38 Escitalopram Oxalate 20 Mg Tab PO 11/01/24 08:59 20 mg DAILY JOHN Administration Gabapentin 100 mg 10/01/24 21:00 10/02/24 20:54 Gabapentin 100 Mg Cap PO 10/31/24 20:59 100 mg HS JOHN Administration Acetaminophen 1,000 mg in 100 mls @ 400 mls/hr 10/01/24 13:28 10/03/24 09:16 Ofirmev IV 10/04/24 13:27 Infused Q8H PRN Infusion Pain or Fever Pantoprazole Sodium 40 mg in 10 mls @ 5 mls/min 10/01/24 21:00 10/03/24 08:39 Protonix IV 10/31/24 20:59 5 mls/min BID JOHN Administration Miscellaneous 1 each 10/01/24 16:00 10/03/24 08:37 Naloxegol: Order Awaiting Action N/A 10/31/24 15:59 Not Given QS JOHN Miscellaneous 1 each 10/02/24 08:59 10/03/24 08:37 Remove Nicoderm Patch N/A 11/01/24 08:58 1 each DAILY@0859 JOHN Administration Morphine Sulfate 4 mg 10/01/24 14:45 10/03/24 02:40 Morphine Sulfate 4 Mg/Ml 1 Ml Carp\Vial IV 10/15/24 14:44 4 mg Q3H PRN Administration Mod-Sev Pain (Scale 4-10) Nicotine 1 patch 10/02/24 09:00 10/03/24 08:38 Nicotine 21 Mg/24 Hr Tdsy TD 11/01/24 08:59 1 patch QAM JOHN Administration Ondansetron HCl 4 mg 10/01/24 14:45 10/03/24 02:40 Ondansetron Inj 2 Mg/Ml 2 Ml Vial IV 10/31/24 14:44 4 mg Q6H PRN Administration NAUSEA/VOMITING Rosuvastatin Calcium 10 mg 10/02/24 09:00 10/03/24 08:39 Rosuvastatin Calcium 10 Mg Tab PO 11/01/24 08:59 10 mg DAILY JOHN Administration NPO Date Last Intake of Fluids: 10/02/24 Time Last Intake of Fluids: 23:59 Date Last Intake of Solids: 10/02/24 Time Last Intake of Solids: 23:59 Past Medical History Medical History Back injury recent back injury, treated at [facility] Emergency Room 05/01/23 - treated with pain medication and steroids at the time. doing better at this time. Anxiety and depression Dyslipidemia HTN (hypertension) Hx of steroid therapy lumbar steroid injection, 10/2022 [facility] History of stomach ulcers Gastritis hx GERD (gastroesophageal reflux disease) Leg edema bilateral Temporomandibular joint disorder clicking when eats Post traumatic stress disorder Hx of migraines Lumbar pain Degenerative disc disease Exercise / Class Metabolic Activity II 4-5 Yardwork/Stairs/Walk up hill Past Family History Family History Father Skin cancer Grandmother (Paternal) Stomach cancer Other No family history of adverse response to anesthesia Denies family history of Ovarian cancer Prostate cancer Breast cancer Colorectal cancer Past Surgical History Surgical History H/O radiofrequency ablation (RFA) of nerve of lumbar spine 04/04/23 & 04/06/[address] Cervantes Hx of cardiac catheterization 09/2022- having chest pain and PVC'S , no stents- follows w/ [facility] H/O breast augmentation History of esophagogastroduodenoscopy (EGD) History of colonoscopy History of section X 1 Vocal cord polyps removed multiple times History of tooth extraction Nausea and vomiting after administration of anesthetic agent History of hysterectomy partial History of bilateral tubal ligation Hx of shoulder surgery left shoulder x 2 History of tonsillectomy Past Anesthesia History No Hx of Anesthesia Complications and No Family Hx of Anesthesia Complications History of PONV No Hx of PONV and No Hx of Motion Sickness Social History Smoking Status: Current every day smoker tobacco type: cigarettes Smoking cigarettes per day: 40 CIG DAILY- advised Do You Dip or Chew Tobacco: No Hx Alcohol Use: No Alcohol type: beer, wine and hard liquor alcohol intake frequency: a few times a month Alcohol Intake Frequency Comment: sober 8m Hx Substance Use: No substance use type: does not use Physical Exam Vital Signs Last Vital Signs Temp 36.6 C 10/03/24 11:02 Pulse 76 10/03/24 11:02 Resp 18 10/03/24 11:02 BP 127/66 10/03/24 11:02 Pulse Ox 93 10/03/24 11:02 O2 Del Method Room Air 10/03/24 11:02 O2 Flow Rate 2 10/02/24 07:37 Constitutional no acute distress ENMT Mouth: no dentition abnormality Thyromental Distance: > or= 3.5 Finger Breadths Mallampati Class: II Neck normal visual inspection Respiratory normal respiratory effort; no respiratory distress Auscultation: lungs clear to auscultation bilaterally Cardiovascular Rate/Rhythm: regular rate and regular rhythm Heart Sounds: no murmur Musculoskeletal Spine: normal cervical ROM Psychiatric Orientation: alert and oriented x 3 Testing Laboratory Results 10/03/24 05:52 10/03/24 05:52 PT 11.4 Seconds (9.0-12.0) 10/01/24 10:19 INR 1.1 (0.9-1.1) 10/01/24 10:19 APTT 28 Seconds (21-31) 10/01/24 10:19 Urine Color Yellow 10/01/24 13:52 Urine Appearance Clear (Clear) 10/01/24 13:52 Urine pH 6.5 (4.5-7.5) 10/01/24 13:52 Ur Specific Wells 1.010 (1.000-1.030) 10/01/24 13:52 Urine Protein Negative (Negative) 10/01/24 13:52 Urine Glucose (UA) Negative (Negative) 10/01/24 13:52 Urine Ketones Negative (Negative) 10/01/24 13:52 Urine Nitrite Negative (Negative) 10/01/24 13:52 Ur Leukocyte Esterase Negative (Negative) 10/01/24 13:52 Electrocardiogram Date: 10/01/24 Findings: + SB @ PVCs Echocardiogram Date: 10/01/24 EF: 50% LV Function: normal Valvular Disease: + MR (mild ) Day of Procedure Evaluation. Date of Surgery October 03, 2024 Height/Weight Height: 5 ft 8 in Weight: 74.9 kg Vital Signs Last Vital Signs Temp 36.6 C 10/03/24 11:02 Pulse 76 10/03/24 11:02 Resp 18 10/03/24 11:02 BP 127/66 10/03/24 11:02 Pulse Ox 93 10/03/24 11:02 O2 Del Method Room Air 10/03/24 11:02 O2 Flow Rate 2 10/02/24 07:37 Allergies Allergy/AdvReac Type Severity Reaction Status Date / Time Sulfa (Sulfonamide Allergy Severe ANAPHYLAXIS Verified 08/12/24 14:36 Antibiotics) cefaclor Allergy Intermediate HIVES Verified 08/12/24 14:36 ceftriaxone Allergy Intermediate HIVES Verified 08/12/24 14:36 Cephalosporins Allergy Intermediate HIVES Verified 08/12/24 14:36 Medications Home Medications Medication Instructions Recorded Confirmed Last Taken spironolactone 25 mg tablet 0 mg PO QAM 10/12/22 10/01/24 09/08/23 metoprolol tartrate 25 mg tablet 25 mg PO BID #60 tabs 11/10/22 10/01/24 10/01/24 amlodipine 10 mg tablet 10 mg PO QAM 04/06/23 10/01/24 10/01/24 naloxegol 25 mg tablet (Movantik) 25 mg PO QAM PRN opioid induced 04/14/23 10/01/24 Unknown constipation gabapentin 100 mg capsule 100 mg PO HS 07/04/23 10/01/24 09/07/23 cholecalciferol (vitamin D3) 25 2,000 mcg PO QAM 12/19/23 10/01/24 10/01/24 mcg (1,000 unit) tablet (Vitamin D3) escitalopram oxalate 20 mg tablet 20 mg PO DAILY 12/19/23 10/01/24 Unknown (Lexapro) rosuvastatin 20 mg tablet 10 mg PO DAILY 12/19/23 10/01/24 Unknown aspirin 81 mg tablet,delayed 81 mg PO QAM 10/01/24 10/01/24 10/01/24 release Active Medications Generic Name Dose Route Start Last Admin Trade Name Freq PRN Reason Stop Dose Admin Amlodipine Besylate 10 mg 10/02/24 09:00 10/03/24 08:37 Amlodipine Besylate 5 Mg Tab PO 11/01/24 08:59 10 mg QAM JOHN Administration Aspirin 81 mg 10/02/24 09:00 10/03/24 08:38 Aspirin 81 Mg Ectab PO 11/01/24 08:59 81 mg QAM JOHN Administration Escitalopram Oxalate 20 mg 10/02/24 09:00 10/03/24 08:38 Escitalopram Oxalate 20 Mg Tab PO 11/01/24 08:59 20 mg DAILY JOHN Administration Gabapentin 100 mg 10/01/24 21:00 10/02/24 20:54 Gabapentin 100 Mg Cap PO 10/31/24 20:59 100 mg HS JOHN Administration Acetaminophen 1,000 mg in 100 mls @ 400 mls/hr 10/01/24 13:28 10/03/24 09:16 Ofirmev IV 10/04/24 13:27 Infused Q8H PRN Infusion Pain or Fever Pantoprazole Sodium 40 mg in 10 mls @ 5 mls/min 10/01/24 21:00 10/03/24 08:39 Protonix IV 10/31/24 20:59 5 mls/min BID JOHN Administration Miscellaneous 1 each 10/01/24 16:00 10/03/24 08:37 Naloxegol: Order Awaiting Action N/A 10/31/24 15:59 Not Given QS JOHN Miscellaneous 1 each 10/02/24 08:59 10/03/24 08:37 Remove Nicoderm Patch N/A 11/01/24 08:58 1 each DAILY@0859 JOHN Administration Morphine Sulfate 4 mg 10/01/24 14:45 10/03/24 02:40 Morphine Sulfate 4 Mg/Ml 1 Ml Carp\Vial IV 10/15/24 14:44 4 mg Q3H PRN Administration Mod-Sev Pain (Scale 4-10) Nicotine 1 patch 10/02/24 09:00 10/03/24 08:38 Nicotine 21 Mg/24 Hr Tdsy TD 11/01/24 08:59 1 patch QAM JOHN Administration Ondansetron HCl 4 mg 10/01/24 14:45 10/03/24 02:40 Ondansetron Inj 2 Mg/Ml 2 Ml Vial IV 10/31/24 14:44 4 mg Q6H PRN Administration NAUSEA/VOMITING Rosuvastatin Calcium 10 mg 10/02/24 09:00 10/03/24 08:39 Rosuvastatin Calcium 10 Mg Tab PO 11/01/24 08:59 10 mg DAILY JOHN Administration Past Anesthesia History No Hx of Anesthesia Complications and No Family Hx of Anesthesia Complications History of PONV No Hx of PONV and No Hx of Motion Sickness NPO Date Last Intake of Fluids: 10/02/24 Time Last Intake of Fluids: 23:59 Date Last Intake of Solids: 10/02/24 Time Last Intake of Solids: 23:59 Home Medications Home Medications Medication Instructions Recorded Confirmed Last Taken spironolactone 25 mg tablet 0 mg PO QAM 10/12/22 10/01/24 09/08/23 metoprolol tartrate 25 mg tablet 25 mg PO BID #60 tabs 11/10/22 10/01/24 10/01/24 amlodipine 10 mg tablet 10 mg PO QAM 04/06/23 10/01/24 10/01/24 naloxegol 25 mg tablet (Movantik) 25 mg PO QAM PRN opioid induced 04/14/23 10/01/24 Unknown constipation gabapentin 100 mg capsule 100 mg PO HS 07/04/23 10/01/24 09/07/23 cholecalciferol (vitamin D3) 25 2,000 mcg PO QAM 12/19/23 10/01/24 10/01/24 mcg (1,000 unit) tablet (Vitamin D3) escitalopram oxalate 20 mg tablet 20 mg PO DAILY 12/19/23 10/01/24 Unknown (Lexapro) rosuvastatin 20 mg tablet 10 mg PO DAILY 12/19/23 10/01/24 Unknown aspirin 81 mg tablet,delayed 81 mg PO QAM 10/01/24 10/01/24 10/01/24 release Active Medications Generic Name Dose Route Start Last Admin Trade Name Raymundo PRN Reason Stop Dose Admin Amlodipine Besylate 10 mg 10/02/24 09:00 10/03/24 08:37 Amlodipine Besylate 5 Mg Tab PO 11/01/24 08:59 10 mg QAM JOHN Administration Aspirin 81 mg 10/02/24 09:00 10/03/24 08:38 Aspirin 81 Mg Ectab PO 11/01/24 08:59 81 mg QAM JOHN Administration Escitalopram Oxalate 20 mg 10/02/24 09:00 10/03/24 08:38 Escitalopram Oxalate 20 Mg Tab PO 11/01/24 08:59 20 mg DAILY JOHN Administration Gabapentin 100 mg 10/01/24 21:00 10/02/24 20:54 Gabapentin 100 Mg Cap PO 10/31/24 20:59 100 mg HS JOHN Administration Acetaminophen 1,000 mg in 100 mls @ 400 mls/hr 10/01/24 13:28 10/03/24 09:16 Ofirmev IV 10/04/24 13:27 Infused Q8H PRN Infusion Pain or Fever Pantoprazole Sodium 40 mg in 10 mls @ 5 mls/min 10/01/24 21:00 10/03/24 08:39 Protonix IV 10/31/24 20:59 5 mls/min BID JOHN Administration Miscellaneous 1 each 10/01/24 16:00 10/03/24 08:37 Naloxegol: Order Awaiting Action N/A 10/31/24 15:59 Not Given QS JOHN Miscellaneous 1 each 10/02/24 08:59 10/03/24 08:37 Remove Nicoderm Patch N/A 11/01/24 08:58 1 each DAILY@0859 JOHN Administration Morphine Sulfate 4 mg 10/01/24 14:45 10/03/24 02:40 Morphine Sulfate 4 Mg/Ml 1 Ml Carp\Vial IV 10/15/24 14:44 4 mg Q3H PRN Administration Mod-Sev Pain (Scale 4-10) Nicotine 1 patch 10/02/24 09:00 10/03/24 08:38 Nicotine 21 Mg/24 Hr Tdsy TD 11/01/24 08:59 1 patch QAM JOHN Administration Ondansetron HCl 4 mg 10/01/24 14:45 10/03/24 02:40 Ondansetron Inj 2 Mg/Ml 2 Ml Vial IV 10/31/24 14:44 4 mg Q6H PRN Administration NAUSEA/VOMITING Rosuvastatin Calcium 10 mg 10/02/24 09:00 10/03/24 08:39 Rosuvastatin Calcium 10 Mg Tab PO 11/01/24 08:59 10 mg DAILY JOHN Administration Exercise / Class Metabolic Activity Metabolic Activity: II 4-5 Yardwork/Stairs/Walk up hill Physical Exam Constitutional: no acute distress Mouth: no dentition abnormality Thyromental Distance: > or= 3.5 Finger Breadths Mallampati Class: II Neck: + visual inspection normal Respiratory: + respiratory effort normal and + clear to auscultation bilaterally; no respiratory distress Cardiovascular: + regular rate and + regular rhythm; no murmur Musculoskeletal: no limited cervical ROM Psychiatric: + alert and + oriented x 3 ASA ASA2 Proposed Anesthesia Proposed Anesthesia: MAC Risk / Benefits Reviewed With: PT / POA / Parent / Guardian, Accepts Plan and Informed Consent Obtained
--- NOTE | 2024-10-03 14:32 | GI REPORT ---
[facility] Patient: MAGGI DE JESUS : 1970 Sex at : Female Age: 53 Years Procedure: Upper GI endoscopy Date: 10/03/2024 Attending Physician: Cezar Anguiano MD Referring MD: Adam Kwok MD Indications: - Epigastric abdominal pain Medications: - Monitored Anesthesia Care Complications: - No immediate complications. Estimated Blood Loss: - Estimated blood loss: None. Procedure: - Prior to the procedure, a History and Physical was performed, and patient medications and allergies were reviewed. The patient's tolerance of previous anesthesia was also reviewed. The risks and benefits of the procedure and the sedation options and risks were discussed with the patient. All questions were answered, and informed consent was obtained. Prior Anticoagulants: The patient has taken no anticoagulant or antiplatelet agents. ASA Grade Assessment: II - A patient with mild systemic disease. After reviewing the risks and benefits, the patient was deemed in satisfactory condition to undergo the procedure. - The egd scope was introduced through the mouth and advanced to the second part of the duodenum. - The upper GI endoscopy was accomplished without difficulty. - The patient tolerated the procedure well. Findings: - The examined esophagus was normal. - Patchy moderate inflammation characterized by erythema was found in the gastric body and in the gastric antrum. Biopsies were taken with a cold forceps for histology. - The examined duodenum was normal. Impression: - Normal esophagus. - Acute gastritis, characterized by erythema. Biopsied. - Normal examined duodenum. Recommendation: - Discharge patient to home (ambulatory). - Resume previous diet. - Continue present medications. - Await pathology results. - Return to primary care physician as previously scheduled. - Patient has a contact number available for emergencies. The signs and symptoms of potential delayed complications were discussed with the patient. Return to normal activities tomorrow. Written discharge instructions were provided to the patient. - Use Protonix (pantoprazole) 40 mg PO daily. - No real esophagitis and gastritis without ulceration noted. findings do not explain her pain. Suggest ppi qd and if needed safe to use nsaids for pericarditis. Procedure Code(s): - 36650, Esophagogastroduodenoscopy, flexible, transoral; with biopsy, single or multiple Diagnosis Code(s): - R10.13, Epigastric pain - K29.00, Acute gastritis without bleeding CPT(R) - 2023 copyright [employer]. All Rights Reserved. The CPT codes, CCI edits and ICD codes generated are intended as suggestions and were generated based on input data. These codes are preliminary and upon farmworker dairy review may be revised to meet current compliance and payer requirements. The provider is responsible for the final determination of appropriate codes, and modifiers. Cezar Anguiano MD This document has been electronically signed. Note Initiated:10/03/2024 Note Completed:10/03/2024 2:31 PM \\[email or web address]\Data\Provation\Results\LIVE\[id number]
[2024-10-03 14:59] VITALS: O2SAT 97
[2024-10-03] MEDS: GLYCOPYRROLATE 0.2 MG/ML VIAL ONE (15:09)
[2024-10-03] MEDS: ONDANSETRON INJ 2 MG/ML 2 ML VIAL ONE (15:09)
[2024-10-03] MEDS: PROPOFOL IV EMULSION 10 MG/ML 20 ML VIAL IV ONE (15:09)
[2024-10-03] MEDS: LIDOCAINE 2% 2 ML VIAL/AMP(20MG/ML) INFIL ONE (15:09)
--- NOTE | 2024-10-03 15:21 | Anesthesiology Progress Note ---
Date of Service October 03, 2024 Anesthesia Post Procedure Vital Signs Vital Signs: Temp Pulse Pulse Pulse Resp BP Pulse Ox 10/03/24 15:00 46 L 17 108/76 97 10/03/24 14:44 44 L 16 129/73 96 10/03/24 14:30 48 L 18 116/59 L 97 10/03/24 13:47 36.7 C 43 L 16 136/88 95 10/03/24 11:02 36.6 C 76 18 127/66 93 10/03/24 09:26 73 10/03/24 09:22 10/03/24 07:32 36.4 C L 77 19 134/72 93 10/03/24 02:31 36.5 C 78 16 129/69 92 10/02/24 23:02 36.5 C 70 18 125/65 93 10/02/24 19:46 10/02/24 19:44 36.6 C 67 20 130/69 95 10/02/24 15:38 36.5 C 79 19 109/65 96 O2 Del Method 10/03/24 15:00 Room Air 10/03/24 14:44 Room Air 10/03/24 14:30 Room Air 10/03/24 13:47 Room Air 10/03/24 11:02 Room Air 10/03/24 09:26 10/03/24 09:22 Room Air 10/03/24 07:32 Room Air 10/03/24 02:31 Room Air 10/02/24 23:02 Room Air 10/02/24 19:46 Room Air 10/02/24 19:44 Room Air 10/02/24 15:38 Room Air Pain Intensity Medial Chest: Pain Intensity: 4 Transfer of Care Handoff Completed per policy Notes Mental Status: alert / awake / arousable and participated in evaluation Nausea / Vomiting: adequately controlled Pain: adequately controlled Airway Patency, RR, SpO2: stable & adequate BP & HR: stable & adequate Hydration State: stable & adequate Anesthetic Complications: no major complications apparent and Pt Satisfied with anesthetic care
[2024-10-03 15:23] VITALS: RESP 16; TEMP 97.7
[2024-10-03] MEDS: KETOROLAC TROMETHAMINE 15 MG/ML VIAL IV ONE (16:07)
--- NOTE | 2024-10-03 17:44 | Electrocardiogram Report ---
Test Reason : Blood Pressure : */* mmHG Vent. Rate : 39 BPM Atrial Rate : 39 BPM P-R Int : 134 ms QRS Dur : 72 ms QT Int : 386 ms P-R-T Axes : 78 67 32 degrees QTcB Int : 310 ms Marked sinus bradycardia with PVCs in a pattern of ventricular bigeminy Biatrial enlargement Nonspecific ST and T wave abnormality Abnormal ECG When compared with ECG of 01-Oct-2024 10:17, Premature ventricular complexes are no longer Present Nonspecific T wave abnormality now evident in Anterior leads QT has shortened Confirmed by Carlos Roche ([id number]) on 10/03/2024 5:44:13 PM Referred By: REFERRED SELF Confirmed By: Carlos Roche
[2024-10-03 18:11] VITALS: BP 127/68; PULSE 76
--- NOTE | 2024-10-03 18:58 | Discharge Summary ---
Discharge Summary Date of Service October 03, 2024 Principal Dx & Hospital Course #1 = Principal Diagnosis (1) Abnormal gallbladder ultrasound: (2) GERD (gastroesophageal reflux disease): (3) Frequent PVCs: (4) HTN (hypertension): (5) Current smoker: Plan The patient is a 53-year-old female with a past medical history including PVCs, tobacco use disorder, abnormal stress test leading to a cardiac catheterization 10/18/2022, recurrent isolated sleep paralysis, therapeutic opioid-induced constipation, sleep paralysis, long-term NSAID use, gastritis, intestinal metaplasia of gastric cardia, GERD, lymphocytic colitis, lumbar disc herniation, and history of nasal septoplasty. About 2 days ago she started develop symptoms of substernal chest pain, occasional epigastric and right upper quadrant pain, with some nausea intermittently but no vomiting. She has been taking her medications as directed, include including pantoprazole in the morning. She also takes Carafate daily as well. She reports that she had not noticed the right upper quadrant pain quite some much until ultrasound was performed and pressure was applied to her right upper quadrant area. #Epigastric and right upper quadrant pain/substernal chest pain Lipase added to morning labs to assess for pancreatitis. Unclear etiology at this time as lower down pain I'd expect and not worse on lying making pericarditis less likely. Will need to re-evaluate following HIDA and lipase. #Abnormal gallbladder ultrasound N.p.o. except medications pending HIDA scan Gallbladder ultrasound notes gallbladder wall thickening with pericholecystic fluid and positive sonographic Rodriguez sign. Findings are nonspecific and could be evaluated with nuclear medicine hepatobiliary scan. Appreciate general surgery recommendations #PVCs/ventricular bigeminy/substernal chest pain- Patient with normal cardiac catheterization 10/18/2022 Has had persistent PVCs Monitoring ED notes sinus bradycardia in the low 40s alternating with ventricular bigeminy in the 60s Decrease metoprolol tartrate from 25 mg twice daily to 12.5 mg p.o. twice daily Continue amlodipine 10 mg daily Continue rosuvastatin Hold spironolactone Appreciate cardiology consult Of note, patient has cardiac MRI which will need to be rescheduled Anxiety and depression/PTSD- Continue Lexapro and gabapentin VTE Prophylaxis - low risk, encourage ambulation Disposition - stable for downgrade to med/surg Admission HPI Per Admitting Provider 53-year-old female with a past medical history including PVCs, tobacco use disorder, abnormal stress test leading to a cardiac catheterization 10/18/2022, recurrent isolated sleep paralysis, therapeutic opioid-induced constipation, sleep paralysis, long-term NSAID use, gastritis, intestinal metaplasia of gastric cardia, GERD, lymphocytic colitis, lumbar disc herniation, and history of nasal septoplasty. About 2 days ago she started develop symptoms of substernal chest pain, occasional epigastric and right upper quadrant pain, with some nausea intermittently but no vomiting. She has been taking her medications as directed, include including pantoprazole in the morning. She also takes Carafate. Ultrasound showed some thickening around the gallbladder but HIDA scan showed a normal EF of 75%. she also went for cardiac workup, echo showed a low normal EF without any significant findings cardiology wanted to try colchicine and NSAIDs for treatment of acute pericarditis. Patient does note she continues to smoke and has had chronic gastritis with some early shallow ulcerations. Discharge Plan Discharge Items Patient Disposition: Home - Self-Care Reason For Visit: CHEST PAIN, ABNORMAL GALLBLADDER US Discharge Diagnosis: Atypical chest/epigastric pain Possible pericarditis Condition on Discharge: Fair Activity: Resume your previous activity Non-emergency contact: Primary Care Provider and Dermatology Physician Call non-emergency contact if: you have any medication questions and your symptoms worsen Follow-up/Referrals: Carlos Roche MD [Physician] - (Pericarditis) Anastacio Magana [employer] [facility] [Primary Care Provider] - Diet: Regular Addtl Attending Provider Instructions: You were admitted to [facility] from October 01 - 2024 due to chest and epigastric pain. You were diagnosed with possible pericarditis. This will be treated with colchicine and ibuprofen. Please follow up with cardiology on discharge. Please take pantoprazole 40mg PO daily while on ibuprofen and colchicine for mild gastritis on EGD as this can get worse on these medications. Use ondansetron for nausea as needed. Pending Studies at Discharge: No Stand-Alone Forms: My [facility], Smoking Cessation Medications and DC Order Prescriptions: New colchicine 0.6 mg tablet 0.6 mg PO BID Qty: 60 0RF ibuprofen 400 mg tablet 400 mg PO Q8H Qty: 21 0RF pantoprazole 40 mg tablet,delayed release (DR/EC) 40 mg PO DAILY 28 Days Qty: 28 0RF ondansetron 4 mg tablet,disintegrating 4 mg PO Q6H PRN (Reason: nausea and vomiting) Qty: 10 0RF Continued spironolactone 25 mg tablet 0 mg PO QAM Patient Comments: per pt, she hasnt got any new refills from the [place] yet. gabapentin 100 mg capsule 100 mg PO HS amlodipine 10 mg tablet 10 mg PO QAM rosuvastatin 20 mg tablet 10 mg PO DAILY metoprolol tartrate 25 mg tablet 25 mg PO BID Qty: 60 11RF escitalopram oxalate [Lexapro] 20 mg tablet 20 mg PO DAILY cholecalciferol (vitamin D3) [Vitamin D3] 25 mcg (1,000 unit) tablet 2,000 mcg PO QAM Movantik 25 mg tablet 25 mg PO QAM PRN (Reason: opioid induced constipation) Rx Instructions: must be taken on empty stomach; no food 1 hr after or 2-3 hrs before dose aspirin 81 mg Tablet,Delayed Release (Dr/Ec) 81 mg PO QAM Discharge Orders: Discharge Order (Routine); Ordered 10/03/24 Ordered By: Adam Altamirano/Other Patient Handouts: ED Pericarditis Admission Data Admit Date/Time: 10/01/24 13:40 Attending Provider: Adam Kwok Admit Provider: Cheo Mcdaniels Primary Care Provider: Anastacio Magana Other Providers: Khris Mcleod; Cheo Mcdaniels; Carlos Roche ; [facility]; Cezar Anguiano Other Interventions: Discharge Summary Assessment (RN) Last Done: 10/03/24 14:57 Hospital Stay Data Consultations 10/01/24 12:58 Consult General Surgery Stat ED Decision to Admit Stat 10/01/24 14:45 Consult Cardiology Routine 10/02/24 13:13 Consult Gastroenterology Routine Procedures Performed Operation Date: 10/03/24 16:45 Actual Procedures p EGD Biopsy Cytology - Cezar Anguiano MD Diagnostic Imagining Performed 10/01/24 10:43 US gallbladder Stat Pending Results Patient Have Any Pending Studies at Discharge: No Discharge Instructions Given to Patient (Per Discharging Provider) You were admitted to [facility] from October 01 - 2024 due to chest and epigastric pain. You were diagnosed with possible pericarditis. This w ill be treated with colchicine and ibuprofen. Please follow up with cardiology on discharge. Please take pantoprazole 40mg PO daily while on ibuprofen and colchicine for mild gastritis on EGD as this can get worse on these medications. Use ondansetron for nausea as needed. Coding Diagnoses Abnormal gallbladder ultrasound R93.2 GERD (gastroesophageal reflux disease) K21.9 Frequent PVCs I49.3 HTN (hypertension) I10 Current smoker F17.200
== END 2024-10-03 18:35 | disposition home or self-care (01) ==
LOC: 2S 10:13 → ED 10:13 → SUATTDRO 13:40 → 2S 17:36